=== PATIENT | female | born 1995 | race Caucasian/White ===

== ENCOUNTER 2016-04-06 14:17 | Emergency (ER) | payer MEDICAID, OTHER ==
[~2016-04-06] VITALS: Ht 160 cm; Wt 67.4 kg
[~2016-04-06 14:17] MED LIST: ACET325 PO; ALBU8I INH; PRED20 PO
[2016-04-06 14:27] VITALS: BP 118/87; PULSE 93; RESP 16; TEMP 98.5; O2SAT 98
[2016-04-06 14:49] LABS: BLOOD, URINE NEG (NEG); GLUCOSE,URINE NEG (NEG); KETONE, URINE NEG (NEG); NITRITE,URINE NEG (NEG)
[2016-04-06 14:55] LABS: METHOD OF COLLECTION CLEAN CATCH; URINE COLOR STRAW (YELLW/STRAW)
[2016-04-06] MEDS ORDERED: ZOFR8TAB4 SL (14:56)
[2016-04-06] MEDS ORDERED: TUSSSUS2 PO (14:56)
--- NOTE | 2016-04-06 14:56 | PD ---
HPI . Vomiting Chief Complaint: GI Complaint Time Seen by Provider: 14:45 Travel History International Travel<30 days: No Contact w/Intl Traveler<30days: No Traveled to known affect area: No History of Present Illness HPI The patient presents with a 2 week history of vomiting. Her vomitus has now become blood tinged. Around 4-6 episodes of emesis per day. She has some associated nausea and "weird cravings." Her last normal menstrual period was 2 months ago. PFSH Past Medical History Hx Anticoagulant Therapy: No Anemia: Yes Asthma: Yes Diminished Hearing: No Headaches: Yes Respiratory: Yes (asthma) Influenza Vaccination: No ?: Unknown LMP: 2 months ago : 1 Social History Alcohol Use: Yes (OCC) Tobacco Use: Yes (03/09 PPD) Substance Use: Yes (POT) Allergies-Medications (Allergen,Severity, Reaction): Coded Allergies: No Known Allergies (Unverified , 04/06/16) Reported Meds & Prescriptions Reported Meds & Active Scripts Active Tussionex Pennkinetic Ext 12 HR Liq (Hydrocodone-Chlorpheniramine 12 HR Liq) 10- 8 Mg/5 Ml Susp 5 Ml PO Q12H PRN Zofran Odt (Ondansetron Odt) 8 Mg Tab 8 Mg SL Q8H PRN Review of Systems Except as stated in HPI: all other systems reviewed are Neg General / Constitutional: Positive: Other (cravings), No: Fever, Chills Respiratory: Positive: Cough Gastrointestinal: Positive: Nausea, Vomiting, Hematemesis Physical Exam Narrative GENERAL: This is a healthy-appearing young woman who has a deep, dry cough. SKIN: Warm and dry. HEAD: Atraumatic. Normocephalic. EYES: Pupils equal and round. ENT: No nasal bleeding or discharge. Mucous membranes pink and moist. Oropharynx has some erythema consistent with irritation. NECK: Trachea midline. Neck is supple. No cervical lymphadenopathy. CARDIOVASCULAR: Regular rate and rhythm. Heart sounds are normal. RESPIRATORY: No accessory muscle use. Lungs are clear with full air movement throughout. GASTROINTESTINAL: Abdomen soft, non-tender, nondistended. MUSCULOSKELETAL: No obvious deformities. No edema. NEUROLOGICAL: Awake and alert. No obvious cranial nerve deficits. Motor grossly within normal limits. Normal speech. PSYCHIATRIC: Appropriate mood and affect; insight and judgment normal. Data Data Last Documented VS Vital Signs Date Time Temp Pulse Resp B/P Pulse Ox O2 Delivery O2 Flow Rate FiO2 04/06/16 14:37 16 04/06/16 14:27 98.5 93 118/87 98 Orders Urinalysis - C+S If Indicated (04/06/16 14:40) Ed Urine Pregnancytest Poc (04/06/16 14:40) Labs Laboratory Tests Test 04/06/16 14:46 Urine Collection Type CLEAN CATCH Urine Color STRAW Urine Turbidity CLOUDY Urine pH 8.0 Urine Specific [place] 1.017 Urine Protein NEG mg/dL Urine Glucose (UA) NEG mg/dL Urine Ketones NEG mg/dL Urine Occult Blood NEG Urine Nitrite NEG Urine Bilirubin NEG Urine Leukocyte Esterase SMALL Urine WBC 0-2 /hpf Urine Squamous Epithelial >8 /hpf Cells Urine Bacteria FEW /hpf Microscopic Urinalysis Comment CULT NOT INDICATED MDM Medical Decision Making Medical Screen Exam Complete: Yes Emergency Medical Condition: Yes Differential Diagnosis Differential diagnosis includes but is not limited to viral gastritis, food poisoning, pancreatitis, pneumonia, hepatitis, acute coronary syndrome, Narrative Course Patient presents with a 2 week history of vomiting. Her vomitus is now blood- tinged. test is positive. UA is positive for leukocyte esterase. It is a contaminated specimen. However , she is so I will go ahead and treat. Diagnosis Primary Impression: Vomiting affecting , antepartum Additional Impressions: Hematemesis Qualified Code: K92.0 - Hematemesis with nausea UTI (urinary tract infection) Qualified Code: N30.00 - Acute cystitis without hematuria Scripts Nitrofurantoin Monohydrate Macrocrystals (Macrobid)100 Mg [id number] Mg PO BID #10 CAP Ref 0 Prov:Lesly Hernandez MD 04/06/16 Hydrocodone-Chlorpheniramine 12 HR Liq (Tussionex Pennkinetic Ext 12 HR Liq)10- 8 Mg/5 Ml Susp5 Ml PO Q12H PRN (COUGH AND/OR COLD SYMPTOMS) #60 ML Ref 0 Prov:Lesly Hernandez MD 04/06/16 Ondansetron Odt (Zofran Odt)8 Mg Tab8 Mg SL Q8H PRN (NAUSEA OR VOMITING) #12 TAB Ref 0 Prov:Lesly Hernandez MD 04/06/16 Disposition: 01 DISCHARGE HOME Condition: Stable Lesly Hernandez MD Apr 06, 2016 14:56
[2016-04-06 14:57] LABS: BACTERIA, URINE FEW /hpf; COMMENT (UR) CULT NOT INDICATED; CULTURE IF INDICATED CULT NOT INDICATED; SQUAMOUS EPITHELIAL CELL URINE >8 /hpf (0-5); WBC, URINE 0-2 /hpf (0-5)
[2016-04-06] MEDS ORDERED: MACR100C2 PO (15:12)
[2016-08-04] MEDS ORDERED: PRENCAP35 PO (14:53)
== END 2016-04-06 15:17 | disposition home or self-care (01) ==
LOC: PHED 14:17
DX: O21.0 Mild hyperemesis gravidarum (principal); O23.40 Unspecified infection of urinary tract in pregnancy, unspecified trimester; K92.0 Hematemesis; Z3A.00 Weeks of gestation of pregnancy not specified
CPT/HCPCS: 81001; 84703; 99284

== ENCOUNTER 2016-06-12 15:34 | Emergency (ER) | payer MEDICAID ==
[~2016-06-12] VITALS: Ht 160 cm; Wt 74.0 kg
[~2016-06-12 15:34] MED LIST changes: -ACET325 PO; -ALBU8I INH; +MACR100C2 PO; -PRED20 PO; +TUSSSUS2 PO; +ZOFR8TAB4 SL
[2016-06-12 15:37] VITALS: BP 134/79; PULSE 105; RESP 16; TEMP 98.7; O2SAT 98
--- NOTE | 2016-06-12 16:44 | PD ---
HPI Chief Complaint: Related Problem Time Seen by Provider: 16:29 Travel History International Travel<30 days: No Contact w/Intl Traveler<30days: No Traveled to known affect area: No History of Present Illness HPI 20-year-old female complains of low abdominal cramping. Patient is about 4 months by dates. Patient has not had any care. Patient states that she started having some lower abdominal cramping for the past several days. Patient denies any dysuria or frequency. Patient denies any vaginal discharge or bleeding. Patient denies any fever chills. Patient denies any back pain. PFSH Past Medical History Hx Anticoagulant Therapy: No Anemia: Yes Asthma: Yes Diminished Hearing: No Headaches: Yes Respiratory: Yes (ASTHMA) ?: LMP: JANUARY 2016 : 1 Social History Alcohol Use: No Tobacco Use: Yes (1 PPWEEK) Substance Use: Yes (POT) Allergies-Medications (Allergen,Severity, Reaction): Coded Allergies: No Known Allergies (Unverified , 06/12/16) Reported Meds & Prescriptions Reported Meds & Active Scripts Active Review of Systems General / Constitutional: No: Fever Eyes: No: Visual changes HENT: No: Headaches Cardiovascular: No: Chest Pain or Discomfort Respiratory: No: Shortness of Breath Gastrointestinal: Positive: Abdominal Pain Genitourinary: No: Dysuria Musculoskeletal: No: Pain Skin: No Rash Neurologic: No: Weakness Psychiatric: No: Depression Endocrine: No: Polydipsia Hematologic/Lymphatic: No: Easy Bruising Physical Exam Narrative GENERAL: Well-nourished, well-developed patient. SKIN: Focused skin assessment warm/dry. HEAD: Normocephalic. EYES: No scleral icterus. No injection or drainage. NECK: Supple, trachea midline. No JVD or lymphadenopathy. CARDIOVASCULAR: Regular rate and rhythm without murmurs, gallops, or rubs. RESPIRATORY: Breath sounds equal bilaterally. No accessory muscle use. GASTROINTESTINAL: Abdomen soft, non-tender, nondistended. Fundal height at the umbilicus level. MUSCULOSKELETAL: No cyanosis, or edema. BACK: Nontender without obvious deformity. No CVA tenderness. MANGLE ROLL OPERATOR exam: The cervix long thick and closed. The fundal height at the level of the umbilicus. Data Data Last Documented VS Vital Signs Date Time Temp Pulse Resp B/P Pulse Ox O2 Delivery O2 Flow Rate FiO2 06/12/16 16:49 86 16 115/80 98 Room Air 06/12/16 15:37 98.7 Orders Urinalysis - C+S If Indicated (06/12/16 16:38) Labs Laboratory Tests Test 06/12/16 16:45 Urine Collection Type CLEAN CATCH Urine Color YELLOW Urine Turbidity SLIGHT Urine pH 6.0 Urine Specific [place] 1.014 Urine Protein NEG mg/dL Urine Glucose (UA) NEG mg/dL Urine Ketones NEG mg/dL Urine Occult Blood NEG Urine Nitrite NEG Urine Bilirubin NEG Urine Leukocyte Esterase NEG Urine Squamous Epithelial 0-5 /hpf Cells Urine Amorphous Sediment FEW Microscopic Urinalysis Comment CULT NOT INDICATED Urine Collection Time 1645 MDM Medical Decision Making Medical Screen Exam Complete: Yes Emergency Medical Condition: Yes Interpretation(s) 17 11 PM. UA is negative. Differential Diagnosis Differential diagnosis including with pelvic pain, UTI, threatened AB. Narrative Course 20-year-old female about 16 week , with low abdominal cramping. Procedures Procedure Narrative Emergency Department Pelvic ultrasound was performed with patient consent. The curvilinear probe was used in the transverse and sagittal views within the suprapubic region revealing single intrauterine . heart rate was 146. Active fetus. Diagnosis Primary Impression: related pelvic pain in second trimester, antepartum Patient Instructions: General Instructions Additional Instructions: Encourage by mouth fluids. Bed rest. Follow-up with OB. Return if increased pelvic pain, vaginal bleeding. Med/Other Pt SpecificInfo: No Meds Exist/No RX given Disposition: 01 DISCHARGE HOME Condition: Stable Sheng Eugene MD Jun 12, 2016 16:44
[2016-06-12 16:49] VITALS: BP 115/80; PULSE 86; RESP 16; O2SAT 98
[2016-06-12 16:56] LABS: BLOOD, URINE NEG (NEG); GLUCOSE,URINE NEG (NEG); KETONE, URINE NEG (NEG); NITRITE,URINE NEG (NEG)
[2016-06-12 17:03] LABS: METHOD OF COLLECTION CLEAN CATCH; URINE COLOR YELLOW (YELLW/STRAW)
[2016-06-12 17:05] LABS: COMMENT (UR) CULT NOT INDICATED; CULTURE IF INDICATED CULT NOT INDICATED; SQUAMOUS EPITHELIAL CELL URINE 0-5 /hpf (0-5)
[2016-08-04] MEDS ORDERED: PRENCAP35 PO (14:53)
== END 2016-06-12 17:23 | disposition home or self-care (01) ==
LOC: PHED 15:34
DX: O26.892 Other specified pregnancy related conditions, second trimester (principal); R10.2 Pelvic and perineal pain; Z3A.16 16 weeks gestation of pregnancy
CPT/HCPCS: 81001; 99284

== ENCOUNTER 2016-07-04 14:09 | Emergency (ER) | payer MEDICAID ==
[~2016-07-04] VITALS: Ht 160 cm; Wt 70.6 kg
[2016-07-04 14:22] VITALS: BP 124/71; PULSE 85; RESP 16; TEMP 98.3; O2SAT 98
--- NOTE | 2016-07-04 14:53 | PD ---
HPI Chief Complaint: Related Problem Time Seen by Provider: 14:27 Travel History International Travel<30 days: No Contact w/Intl Traveler<30days: No Traveled to known affect area: No History of Present Illness HPI The patient was seen and examined in the presence of the nurse. This patient is and complaining of pelvic cramping and some low back discomfort for the last 2 days. Denies injury. No vaginal bleeding or fluid gush. Denies fever. No vomiting or diarrhea. Symptoms severity is mild. No alleviating factors. She has not obtained any care. PFSH Past Medical History Hx Anticoagulant Therapy: No Anemia: Yes Asthma: Yes Diminished Hearing: No Headaches: Yes Respiratory: Yes (ASTHMA) Tetanus Vaccination: < 5 Years Influenza Vaccination: No ?: LMP: 01/19 : 1 Social History Alcohol Use: No Tobacco Use: Yes (1 PPWEEK) Substance Use: Yes (POT) Allergies-Medications (Allergen,Severity, Reaction): Coded Allergies: No Known Allergies (Unverified , 07/04/16) Reported Meds & Prescriptions Reported Meds & Active Scripts Active No Active Prescriptions or Reported Medications Review of Systems General / Constitutional: No: Fever HENT: No: Headaches Cardiovascular: No: Chest Pain or Discomfort Respiratory: No: Cough Physical Exam Narrative GASTROINTESTINAL: Abdomen soft, non-tender, nondistended. Positive bowel sounds. No hepato-splenomegaly, or palpable masses. No guarding. Gravid uterus is nontender. It measures to 2 cm past the umbilicus suggesting approximate 22 weeks gestation age The heart tones 136 and regular SKIN: Focused skin assessment reveals no rash or ulcers. Skin is warm and dry. Palpation shows no induration or nodules. NECK: Symmetrical appearance, midline trachea. No mass or crepitus. Thyroid without enlargement, tenderness, or mass. Pelvic: Cervix closed without motion tenderness. No blood in the vault Data Data Last Documented VS Vital Signs Date Time Temp Pulse Resp B/P Pulse Ox O2 Delivery O2 Flow Rate FiO2 07/04/16 14:22 98.3 85 16 124/71 98 Orders Heart Tones (07/04/16 14:45) MDM Medical Decision Making Medical Screen Exam Complete: Yes Emergency Medical Condition: Yes Medical Record Reviewed: Yes Differential Diagnosis labor, nonspecific pelvic cramping, ectopic Narrative Course I have reviewed the patient's electronic medical record. Reviewed her visit here from a month ago Patient is with unknown exact gestational age but an approximate uterine measurement at 22 weeks. Has closed cervix but 2 days of pelvic cramping and low back pain Recommending labor and delivery evaluation to rule out labor which is probably low likelihood which should be ruled out Stable for nonemergent visit to labor and delivery Discussed this at length with patient I don't feel she needs ambulance transport, cyanide case hardener is looking into getting a cab etc. Diagnosis Primary Impression: related pelvic pain in second trimester, antepartum Additional Instructions: Go to labor and delivery at the main hospital for evaluation and rule out of labor After that obtain care as soon as she can Med/Other Pt SpecificInfo: Other Scripts No Active Prescriptions or Reported Meds Disposition: 01 DISCHARGE HOME Condition: Stable Anderson Singh MD July 04, 2016 14:53
[2016-08-04] MEDS ORDERED: PRENCAP35 PO (14:53)
== END 2016-07-04 15:08 | disposition home or self-care (01) ==
LOC: PHED 14:09
DX: O26.892 Other specified pregnancy related conditions, second trimester (principal); R10.2 Pelvic and perineal pain; Z3A.22 22 weeks gestation of pregnancy
CPT/HCPCS: 99283

== ENCOUNTER 2016-07-04 16:04 | Emergency (ER) | payer MEDICAID ==
--- NOTE | 2016-07-04 17:30 | PD ---
HPI Chief Complaint pelvic pain Date Seen: July 04, 2016 Time Seen: 16:49 (Itz Cifuentes MD R1) Travel History International Travel<30 Days: No Contact w/Intl Traveler<30Days: No (Itz Cifuentes MD R1) History of Present Illness HPI 20 y/o with unsure dated, thinks 20-21 weeks, female presents with pelvic pain. She was seen in [place] ED this morning for brown vaginal discharge and cold-like symptoms. Also having bilateral pelvic pain. States the pain has been going on for a couple days, but has worsened recently. Also endorses fever, states she checked it and it was 101 at home. Denies any vaginal bleeding, loss of fluids, contractions. States movement has decreased, especially during the day. She has no care. States LMP was around 01/24/16. She has irregular periods, so was unsure. Otherwise, denies any headache, changes in vision, edema. No chest pain, SOB, leg pain, dysuria. Para: 1 : 6 Miscarriage: 3 : 1 (Itz Cifuentes MD R1) History Past Medical History Narrative Medical Iron-deficiency anemia PTSD Anxiety/Depression (Itz Cifuentes MD R1) Obstetric History Obstetric History -3 miscarriages, 1 -Previous delivery was at term (Itz Cifuentes MD R1) Past Surgical History Surgical History: No Previous Surgery (Itz Cifuentes MD R1) Family History Family History: Negative (Itz Cifuentes MD) Social History Narrative Social History Alcohol early on in before she knew she was Smokes a couple cigarettes/week Smokes marijuana almost daily (Itz Cifuentes MD R1) Allergies-Medications (Allergen,Severity, Reaction): Coded Allergies: No Known Allergies (Unverified , 07/04/16) Home Meds No Active Prescriptions or Reported Meds Review of Systems General / Constitutional: Fever, Weight Gain, No: Chills Eyes: No: Blurred Vision, Pain HENT: No: Headaches Cardiovascular: No: Irregular Rhythm, Chest Pain or Discomfort, Edema Respiratory: Cough, No: Short of Breath Gastrointestinal: No: Nausea, Vomiting, Diarrhea, Abdominal Pain, Constipation Genitourinary: Pelvic Pain, Discharge, No: Urgency, Frequency, Vaginal Bleeding Musculoskeletal: No: Edema Skin: No Rash, No Itching Neurologic: No: Weakness, Dizziness Psychiatric: No: Anxiety, Depression (Itz Cifuentes MD R1) Physical Exam Narrative GENERAL: Well-nourished, well-developed patient. SKIN: Warm and dry. HEAD: Normocephalic and atraumatic. EYES: No scleral icterus. No injection or drainage. ENT: No nasal drainage noted. Mucous membranes pink. Airway patent. NECK: Supple, trachea midline. No JVD. CARDIOVASCULAR: Regular rate and rhythm without murmurs, gallops, or rubs. RESPIRATORY: Breath sounds equal bilaterally. Occasional wheezes. No accessory muscle use. ABDOMEN/GI: Abdomen soft, non-tender, bowel sounds present, no rebound, no guarding Gravid to 25 weeks size GENITOURINARY: External Genitalia: intact and normal in appearance Cervix: closed, minimally friable Speculum exam performed. Milky discharge present. Fishy odor. Cultures obtained. Dilatation: 0 Membranes: intact Uterine Contractions: none FHT's: Category: 1 Baseline: 140 Reactive: yes Variability: moderate Decels: none EXTREMITIES: No cyanosis or edema. BACK: Nontender without obvious deformity. No CVA tenderness. NEUROLOGICAL: Awake and alert. Motor and sensory grossly within normal limits. Five out of 5 muscle strength in all muscle groups. Normal speech. (Itz Cifuentes MD R1) Data Data Vital Signs Reviewed: Yes Orders Us Ob Pelvis >14 Wks Fetus (07/04/16 ) Vital Signs (Adult) .ON ADMISSION (07/04/16 16:44) ^ Labor Status (07/04/16 16:44) Urinalysis - C+S If Indicated (07/04/16 16:44) ^ Hydration (07/04/16 16:44) Wet Prep Profile (07/04/16 16:44) Gc And Chlamydia Pcr (07/04/16 16:44) Ob/Psych Drug Screen, Urine (07/04/16 16:44) Rubella Immune Status (07/04/16 16:44) Hepatitis Profile (07/04/16 16:44) Rapid Plasma Regin (Rpr) W Ttr (07/04/16 16:44) Type And Screen (07/04/16 16:44) Complete Blood Count With Diff (07/04/16 16:44) (Itz Cifuentes MD R1) Vital Signs Reviewed: Yes Labs Laboratory Tests Test 07/04/16 17:38 White Blood Count 7.9 TH/MM3 Red Blood Count 4.47 MIL/MM3 Hemoglobin 11.6 GM/DL Hematocrit 35.4 % Mean Corpuscular Volume 79.1 FL Mean Corpuscular Hemoglobin 25.9 PG Mean Corpuscular Hemoglobin 32.8 % Concent Red Cell Distribution Width 14.3 % Platelet Count 216 TH/MM3 Mean Platelet Volume 9.2 FL Neutrophils (%) (Auto) 65.9 % Lymphocytes (%) (Auto) 24.7 % Monocytes (%) (Auto) 6.2 % Eosinophils (%) (Auto) 3.1 % Basophils (%) (Auto) 0.1 % Neutrophils # (Auto) 5.2 TH/MM3 Lymphocytes # (Auto) 1.9 TH/MM3 Monocytes # (Auto) 0.5 TH/MM3 Eosinophils # (Auto) 0.2 TH/MM3 Basophils # (Auto) 0.0 TH/MM3 CBC Comment DIFF FINAL Differential Comment Urine Color YELLOW Urine Turbidity HAZY Urine pH 6.5 Urine Specific [place] 1.028 Urine Protein 30 mg/dL Urine Glucose (UA) NEG mg/dL Urine Ketones 40 mg/dL Urine Occult Blood NEG Urine Nitrite NEG Urine Bilirubin NEG Urine Urobilinogen 8.0 MG/DL Urine Leukocyte Esterase TRACE Urine RBC LESS THAN 1 /hpf Urine WBC 2 /hpf Urine Squamous Epithelial 2 /hpf Cells Urine Mucus MANY /lpf Microscopic Urinalysis Comment CULT NOT INDICATED Clue Cells (Wet Prep) NONE SEEN Vaginal Trichomonas (Wet Prep) NONE SEEN Vaginal Yeast (Wet Prep) NONE SEEN Urine Opiates Screen NEG Urine Barbiturates Screen NEG Urine Amphetamines Screen NEG Urine Benzodiazepines Screen NEG Urine Cocaine Screen NEG Urine Cannabinoids Screen POS Blood Type A POSITIVE (Sanya Taylor MD) MDM Medical Record Reviewed: Yes Interpretation(s) 20 y/o with unsure dates presents with pelvic pain and brown discharge. Category 1 FHT Speculum exam: Milky discharge, minimally friable cervix. Cultures obtained Poor care, does not follow-up with OB -Continuous FHT -Monitor vitals -Order labs: CBC, Type and screen, Hepatitis panel, RPR, Rubella -UDS, UA -GC/CH, wet prep -Ultrasound to evaluate for growth/accurate dates (Itz Cifuentes MD R1) Attending Attestation The exam, history, and the medical decision-making described in the above note were completed with the assistance of the resident provider. I reviewed and agree with the findings presented. I attest that I had a [id number] encounter with the patient on the same day, and personally performed and documented my assessment and findings in the medical record. 1. no care--anatomy ultrasound obtained and reviewed. PNL drawn and sent to lab. Dr. Ramirez, PGY 2, will accept patient into her OB clinic. Pt given information regarding scheduling appt. 2. brown discharge--wet prep neg, GC/CT pending 3. lower ab pain--pt with uterine irritability on toco initially, decreased with hydration. UA--culture not indicated. cervix closed. no evidence of PTL. suspect RLP. 4. UDS--+MJ 5. URI symptoms--recommend hydration, rest, supportive care, OTC meds (Sanya Taylor MD) Diagnosis Diagnosis: Primary Impression: Vaginal discharge during in third trimester Additional Impression: 27 weeks gestation of Disposition: DISCHARGE HOME Condition: Stable (ERASED) Scripts No Active Prescriptions or Reported Meds Itz Cifuentes MD R1 July 04, 2016 17:30 Sanya Taylor MD July 04, 2016 19:34
[2016-07-04 18:26] LABS: AUTOMATED NEUTROPHIL # 5.2 TH/MM3 (1.8-7.7); BASOPHIL % 0.1 % (0.0-2.0); EOSINOPHIL # 0.2 TH/MM3 (0-0.4); EOSINOPHIL % 3.1 % (0.0-4.0); HEMATOCRIT 35.4 % (35.0-46.0); HEMO FLAGS DIFF FINAL; LYMPH % 24.7 % (9.0-44.0); LYMPHOCYTE # 1.9 TH/MM3 (1.0-4.8); MEAN CELL VOLUME 79.1 FL (80.0-100.0); MEAN CORPUSCULAR HEMOGLOBIN 25.9 PG (27.0-34.0); MEAN CORPUSCULAR HGB CONC 32.8 % (32.0-36.0); MONO % 6.2 % (0.0-8.0); NEUT % 65.9 % (16.0-70.0); PLATELET COUNT 216 TH/MM3 (150-450); RED BLOOD COUNT 4.47 MIL/MM3 (4.00-5.30); RED CELL DISTRIBUTION WIDTH 14.3 % (11.6-17.2); WHITE BLOOD COUNT 7.9 TH/MM3 (4.0-11.0)
[2016-07-04 18:30] LABS: BLOOD, URINE NEG (NEG); GLUCOSE,URINE NEG (NEG); KETONE, URINE 40 mg/dL (NEG); MUCUS URINE MANY /lpf (OCC); NITRITE,URINE NEG (NEG); PH, URINE 6.5 (5.0-8.5); SQUAMOUS EPITHELIAL CELL URINE 2 /hpf (0-5); URINE COLOR YELLOW (YELLW/STRAW)
[2016-07-04 18:31] LABS: COMMENT (UR) CULT NOT INDICATED; CULTURE IF INDICATED CULT NOT INDICATED
[2016-07-04 18:34] VITALS: BP 100/64; PULSE 86; RESP 20
[2016-07-04 18:35] LABS: AMPHETAMINE, URINE NEG (NEG); BARBITURATES, URINE NEG (NEG); COCAINE, URINE NEG (NEG)
[2016-07-04 21:10] LABS: RUBELLA IGG ANTIBODY 222.2 IU/mL (10.0-500.0); RUBELLA STATUS IMMUNE (IMMUNE)
[2016-07-04 21:11] LABS: CHLAMYDIA PCR NOT DETECTED (NOT DETECT); NEISSERIA PCR NOT DETECTED (NOT DETECT)
[2016-07-05 11:06] LABS: RAPID PLASMA REAGIN SCREEN NON-REACTIVE (NON-REACTVE)
[2016-07-08 10:39] LABS: BATH SALTS (MDPV) UR NEG (NEG); ECSTASY (MDMA) UR NEG (NEG); GABAPENTIN UR NEG (NEG); HEROIN (6-ACETYLMORPHINE) UR NEG (NEG); HYDROMORPHONE U NEG (NEG); K2 SPICE UR NEG (NEG); OBMETHADONE UR NEG (NEG); OXYCODONE (PERCODAN) NEG (NEG); PHENCYCLIDINE URINE NEG (NEG)
[2016-08-04] MEDS ORDERED: PRENCAP35 PO (14:53)
== END 2016-07-04 22:08 | disposition home or self-care (01) ==
LOC: HOBED 16:04
DX: O26.92 Pregnancy related conditions, unspecified, second trimester (principal); O09.32 Supervision of pregnancy with insufficient antenatal care, second trimester; N89.8 Other specified noninflammatory disorders of vagina; R10.2 Pelvic and perineal pain; Z3A.27 27 weeks gestation of pregnancy
CPT/HCPCS: 76805; 80074; 80307; 81001; 85025; 86592; 86762; 86850; 86900; 86901; 87210; 87491; 87591; 99284; G0481

== ENCOUNTER 2016-07-25 10:59 | Emergency (ER) | payer MEDICAID ==
[2016-07-25] VITALS (8 sets, daily range): BP systolic 110; BP diastolic 70; PULSE 88–96; RESP 18; TEMP 98
--- NOTE | 2016-07-25 12:06 | PD ---
HPI Chief Complaint Near syncopal episode Date Seen: July 25, 2016 Time Seen: 11:30 (Feliz Simon MD R2) Travel History International Travel<30 Days: No Contact w/Intl Traveler<30Days: No Known Affected Area: No (Feliz Simon MD) History of Present Illness HPI Patient is a 20-year-old at 30/1 weeks gestation based on first trimester ultrasound presenting via [facility] due to a presyncopal episode. Patient reports that earlier today she presented work and while went walking around she felt lightheaded, dizzy. She sat down and felt as if her vision was "closing in ", her coworkers noted that she looks pale. [facility] was called and notes that she was pale and diaphoretic when they responded, her vitals were stable. Patient reports that she has had a decreased appetite for the last 2 days but she has been snacking intermittently. She denies ever losing consciousness during this , denies a history of heart problems. She endorses movement, but this is less than normal, denies vaginal bleeding, loss of fluid, regular contractions. She smokes about 12 cigarettes per day and has been trying to cut back on marijuana use but last smoked marijuana about 2 days ago to help with her appetite. Para: 1 : 7 Miscarriage: 4 : 1 (Feliz Simon MD R2) History Past Medical History Narrative Medical Anemia Asthma Anxiety/depression (Feliz Simon MD R2) Obstetric History Obstetric History Patient has experienced for spontaneous abortions, within the first trimester. She has never been worked up for a bleeding disorder. She has 1 living child who is not in her custody and is being adopted by her mother due to concern for abuse. Patient is interested in local resources as she would like to learn more about adoption. (Feliz Simon MD R2) Past Surgical History Surgical History: No Previous Surgery (Feliz Simon MD) Family History Narrative Family History Patient with history of diabetes and hypertension in maternal grandmother ( Feliz Simon MD R2) Social History Alcohol Use: Yes (Before she knew she was , last drink in March) Tobacco Use: Yes (3-4 cigarettes daily) Substance Abuse: Yes (marijuana) (Feliz Simon MD R2) Allergies-Medications (Allergen,Severity, Reaction): Coded Allergies: No Known Allergies (Unverified , 07/04/16) Home Meds Active Scripts Nitrofurantoin Monohydrate Macrocrystals (Macrobid)100 Mg [id number] Mg PO BID #14 CAP Ref 0 Prov:Feliz Simon MD R2 07/25/16 Review of Systems General / Constitutional: No: Fever, Chills Eyes: No: Visual changes HENT: Headaches (occasional) Cardiovascular: No: Chest Pain or Discomfort Respiratory: No: Short of Breath Gastrointestinal: Nausea, Diarrhea, Abdominal Pain (occasional), No: Vomiting Genitourinary: No: Dysuria Skin: No Rash Neurologic: Dizziness, No: Syncope Psychiatric: Anxiety, Depression (well-controlled) (Feliz Simon MD R2) Physical Exam Narrative GENERAL: Well-nourished, well-developed patient. SKIN: Warm and dry. HEAD: Normocephalic and atraumatic. EYES: No scleral icterus. No injection or drainage. ENT: No nasal drainage noted. Mucous membranes pink. Airway patent. NECK: Supple, trachea midline. No JVD. CARDIOVASCULAR: Regular rate and rhythm without murmurs, gallops, or rubs. RESPIRATORY: Breath sounds equal bilaterally. No accessory muscle use. ABDOMEN/GI: Abdomen soft, non-tender, bowel sounds present, no rebound, no guarding Gravid to 30 weeks size GENITOURINARY: Membranes: Intact Uterine Contractions: absent FHT's: Category: 1 Baseline: 140 Reactive: + Variability: Moderate Decels: Absent EXTREMITIES: No cyanosis or edema. BACK: Nontender without obvious deformity. No CVA tenderness. NEUROLOGICAL: Awake and alert. Motor and sensory grossly within normal limits. Five out of 5 muscle strength in all muscle groups. Normal speech. (Feliz Simon MD R2) MDM Interpretation(s) Patient is a 20-year-old at 30/1 weeks gestation based on first trimester ultrasound presenting via [facility] due to a presyncopal episode. 1) IUP Category 1 tracing, reassuring External monitoring/toco 2) Pre-syncopal episode Patient with history of anemia We'll check CBC, CMP, UA, UDS Urine appears very concentrated, patient was given 250ml Bolus by [facility] Will give 1L Bolus of LR Blood pressure within normal limits, initially 118/76 3) No care, desire for adoption Pt to talk with embedded case manager about available resources She currently has insurance and will call [facility] to schedule an appointment dw Dr. Sánchez (Feliz Simon MD R2) Diagnosis Diagnosis: Primary Impression: Pre-syncope Additional Impression: Normal Disposition: 01 DISCHARGE HOME Condition: Stable Scripts Nitrofurantoin Monohydrate Macrocrystals (Macrobid)100 Mg [id number] Mg PO BID #14 CAP Ref 0 Prov:Feliz Simon MD R2 07/25/16 Referrals: [facility] 1 week Pt provided with information to schedule an appointment Collaborating MD Comments Agree with management (Elizabeth Sánchez MD) Feliz Simon MD R2 July 25, 2016 12:06 Elizabeth Sánchez MD July 26, 2016 08:21
[2016-07-25 12:34] LABS: HEMATOCRIT 31.4 % (35.0-46.0); MEAN CELL VOLUME 77.2 FL (80.0-100.0); MEAN CORPUSCULAR HEMOGLOBIN 25.5 PG (27.0-34.0); MEAN CORPUSCULAR HGB CONC 33.1 % (32.0-36.0); PLATELET COUNT 228 TH/MM3 (150-450); RED BLOOD COUNT 4.07 MIL/MM3 (4.00-5.30); RED CELL DISTRIBUTION WIDTH 13.8 % (11.6-17.2); REVIEW FLAG FINAL; WHITE BLOOD COUNT 9.1 TH/MM3 (4.0-11.0)
[2016-07-25 12:39] LABS: AMPHETAMINE, URINE NEG (NEG); BARBITURATES, URINE NEG (NEG); COCAINE, URINE NEG (NEG)
[2016-07-25 12:43] LABS: BACTERIA, URINE FEW /hpf; BLOOD, URINE NEG (NEG); COMMENT (UR) CULTURE INDICATED; CULTURE IF INDICATED CULTURE INDICATED; GLUCOSE,URINE TRACE mg/dL (NEG); KETONE, URINE 10 mg/dL (NEG); MUCUS URINE MANY /lpf (OCC); NITRITE,URINE NEG (NEG); SQUAMOUS EPITHELIAL CELL URINE 45 /hpf (0-5); URINE COLOR AMBER (YELLW/STRAW)
[2016-07-25] MEDS ORDERED: LACTATED RINGER'S 1000 ML INJ 1,000 ML IV ONE (12:45)
[2016-07-25 12:58] LABS: ANION GAP 9 MEQ/L (5-15); AST (GOT) 13 U/L (16-38); BICARBONATE 23.7 MEQ/L (21.0-32.0); BLOOD UREA NITROGEN 6 MG/DL (7-18); CHLORIDE 103 MEQ/L (98-107); GLOMERULAR FILTRATION RATE 144 ML/MIN (>89); POTASSIUM 3.7 MEQ/L (3.5-5.1); SODIUM (NA) 136 MEQ/L (136-145)
[2016-07-25 13:02] LABS: ALKALINE PHOSPHATASE 112 U/L (45-117); ALT (GPT) 13 U/L (9-42); TOTAL BILIRUBIN ADULT 0.3 MG/DL (0.2-1.0)
[2016-07-25] MEDS ORDERED: MACR100C2 PO (13:37)
[2016-07-28 11:21] LABS: BATH SALTS (MDPV) UR NEG (NEG); ECSTASY (MDMA) UR NEG (NEG); GABAPENTIN UR NEG (NEG); HEROIN (6-ACETYLMORPHINE) UR NEG (NEG); HYDROMORPHONE U NEG (NEG); K2 SPICE UR NEG (NEG); OBMETHADONE UR NEG (NEG); OXYCODONE (PERCODAN) NEG (NEG); PHENCYCLIDINE URINE NEG (NEG)
[2016-08-04] MEDS ORDERED: PRENCAP35 PO (14:53)
== END 2016-07-25 14:30 | disposition home or self-care (01) ==
LOC: HOBED 10:59
DX: O26.893 Other specified pregnancy related conditions, third trimester (principal); R55 Syncope and collapse; R42 Dizziness and giddiness; R82.99 Other abnormal findings in urine; Z72.0 Tobacco use; Z86.2 Personal history of diseases of the blood and blood-forming organs and certain disorders involving the immune mechanism; Z87.09 Personal history of other diseases of the respiratory system; Z86.59 Personal history of other mental and behavioral disorders; Z3A.30 30 weeks gestation of pregnancy
CPT/HCPCS: 80053; 80307; 81001; 85027; 87086; 99284; G0481; J7120

== ENCOUNTER 2016-08-15 12:44 | Emergency (ER) | payer MEDICAID ==
[~2016-08-15 12:44] MED LIST changes: -MACR100C2 PO; +PRENCAP35 PO; -TUSSSUS2 PO; -ZOFR8TAB4 SL
--- NOTE | 2016-08-15 13:28 | PD ---
HPI Chief Complaint Cramping Date Seen: Aug 15, 2016 Travel History International Travel<30 Days: No Contact w/Intl Traveler<30Days: No History of Present Illness HPI Patient is a 21-year-old at 33-1/7 weeks gestation who presents today with pelvic cramping. Symptoms started yesterday and has progressively worsened. The cramping is occurring about every 15 minutes. She is also having nausea and emesis. She feels that she has had leaking fluid since Monday morning. She denies any vaginal bleeding or discharge. She has had frequent stools about 4 times per day for the past 2 days that are softer than usual. care with [facility]. History Past Medical History Narrative Medical Anemia Asthma Anxiety/depression Obstetric History Obstetric History 4 first trimester spontaneous abortions. She has never been worked up for a bleeding disorder. She has 1 living child who is not in her custody and is being adopted by her mother due to concern for abuse. Past Surgical History Surgical History: No Previous Surgery Family History Narrative Family History Maternal grandmother with diabetes and hypertension. Social History Alcohol Use: No Tobacco Use: Yes (3-4 cigarettes per day) Substance Abuse: Yes (marijuana) Allergies-Medications (Allergen,Severity, Reaction): Coded Allergies: No Known Allergies (Unverified , 07/26/16) Home Meds Active Scripts Without A Vit W/ Fe F (Provida Ob 20-20-1.25 mg)1 Cap Cap1 Tab PO DAILY #30 BOTTLE Ref 10 Prov:Vita Blanco 08/04/16 Review of Systems Except as stated in HPI: all other systems reviewed are Neg General / Constitutional: No: Fever, Chills Eyes: No: Visual changes HENT: No: Headaches Cardiovascular: No: Chest Pain or Discomfort Respiratory: Short of Breath, No: Cough Gastrointestinal: Nausea, Vomiting, Abdominal Pain, Changes in Bowel Habits Genitourinary: Pelvic Pain, No: Dysuria, Discharge, Vaginal Bleeding Musculoskeletal: No: Edema Psychiatric: Substance Abuse (marijuana) Physical Exam Narrative GENERAL: Well-nourished, well-developed patient. SKIN: Warm and dry. HEAD: Normocephalic and atraumatic. EYES: No scleral icterus. No injection or drainage. ENT: No nasal drainage noted. Mucous membranes pink. Airway patent. NECK: Supple, trachea midline. No JVD. CARDIOVASCULAR: Regular rate and rhythm without murmurs, gallops, or rubs. RESPIRATORY: Breath sounds equal bilaterally. No accessory muscle use. ABDOMEN/GI: Abdomen soft, non-tender, bowel sounds present, no rebound, no guarding Gravid to 33 weeks size GENITOURINARY: External Genitalia: intact and normal in appearance BUS glands: Normal Cervix: midposition Dilatation: 1 Effacement: 30 Station: -2 Presentation: vertex Membranes: intact Uterine Contractions: none FHT's: Category: I Baseline: 123 Reactive: + Variability: Moderate Decels: none EXTREMITIES: No cyanosis or edema. BACK: Nontender without obvious deformity. Left CVA tenderness. NEUROLOGICAL: Awake and alert. Motor and sensory grossly within normal limits. Normal speech. Data Data Vital Signs Reviewed: Yes MDM Medical Record Reviewed: Yes Narrative Course / MDM 21 year old at 33-1/7 weeks gestation 1. IUP- Category I tracing, reassuring. 2. Cramping- No contractions on toco. Will obtain UA. CVA tenderness. 3. Nausea/vomiting- Tachycardia to 121, will give IV LR for dehydration. 4. Leaking fluid- Amnisure negative. sdw Dr. Macias Addendum: UA not indicative of UTI. Will give zofran for her nausea and gentamicin 100mg once to cover possible UTI based on clinical symptoms. Patient starting to show consistent contractions on toco. Maternal pulse is now 90 after fluids. Will give Terbutaline 0.25mg SQ. Contractions have stopped after Terbutaline. Will discharge patient home, follow-up with [facility]. Diagnosis Diagnosis: Primary Impression: Nausea & vomiting Qualified Code: R11.2 - Non-intractable vomiting with nausea, unspecified vomiting type Additional Impression: contractions Disposition: DISCHARGE HOME Condition: Stable Jennie Ramirez MD R2 Aug 15, 2016 13:28
[2016-08-15] MEDS ORDERED: SODIUM CHLORIDE 0.9% FLUSH 10 ML FLUSH IV FLUSH PRN (13:30)
[2016-08-15 13:56] LABS: BLOOD, URINE NEG (NEG); GLUCOSE,URINE NEG (NEG); HYALINE CAST, URINE 2 /lpf (RARE); KETONE, URINE TRACE mg/dL (NEG); MUCUS URINE MANY /lpf (OCC); NITRITE,URINE NEG (NEG); SQUAMOUS EPITHELIAL CELL URINE 14 /hpf (0-5); URINE COLOR DARK-YELLOW (YELLW/STRAW)
[2016-08-15 14:02] LABS: COMMENT (UR) CULT NOT INDICATED; CULTURE IF INDICATED CULT NOT INDICATED
[2016-08-15] MEDS: LACTATED RINGER'S 1000 ML INJ 1,000 ML IV SCH ×2 (14:06→14:44)
[2016-08-15] MEDS ORDERED: ONDANSETRON HCL 4 MG/2 ML VIAL IV PUSH ONE (14:15)
[2016-08-15] MEDS ORDERED: GENTAMICIN INJ 100 MG in SODIUM CHLORIDE 0.9% INJ 100 ML IV ONE (14:15)
[2016-08-15 14:36] VITALS: BP 103/61; PULSE 81
[2016-08-15] MEDS ORDERED: TERBUTALINE INJ 1 MG/ML AMP SQ PRN (15:00)
== END 2016-08-15 15:18 | disposition home or self-care (01) ==
LOC: HOBED 12:44
DX: O21.2 Late vomiting of pregnancy (principal); Z3A.33 33 weeks gestation of pregnancy
CPT/HCPCS: 59025; 81001; 84112; 96374; 96375; 99284; J1580; J2405; J3010; J7120

== ENCOUNTER 2016-09-11 23:13 | Emergency (ER) | payer MEDICAID ==
--- NOTE | 2016-09-11 23:54 | PD ---
HPI Travel History International Travel<30 Days: No Contact w/Intl Traveler<30Days: No Known Affected Area: No History of Present Illness HPI This patient is a 21-year-old 7 para 1051 EDC is October 02, 2016 presently at 37 weeks she presents with chief complaint of possible spontaneous rupture of membranes. Having occasional irregular contractions no vaginal bleeding the baby is active [facility] with [facility] was seen on the triage unit approximately a month ago with contractions was given terbutaline and discharged home. Amnisure is negative History Past Medical History Narrative Medical Patient is allergic to an antidepressive does not know the name of it it gives her a rash History of asthma migraines anemia PTSD Obstetric History Obstetric History First baby born May 2014 male weight 6 lbs. 15 oz. vaginal delivery VIP 1 Spontaneous AB 4 Past Surgical History Narrative Surgical D&C Family History Narrative Family History Heart disease Social History Alcohol Use: No Tobacco Use: Yes (stop smoking with ) Substance Abuse: Yes (history of marijuana use stop with ) Allergies-Medications (Allergen,Severity, Reaction): Coded Allergies: No Known Allergies (Unverified , 09/08/16) Home Meds Active Scripts Without A Vit W/ Fe F (Provida Ob 20-20-1.25 mg)1 Cap Cap1 Tab PO DAILY #30 BOTTLE Ref 10 Prov:Vita Blanco 08/04/16 Review of Systems Gastrointestinal: Abdominal Pain (irregular contractions) Genitourinary: Other (possible rupture of membranes) Physical Exam Narrative GENERAL: Well-nourished, well-developed patient. Alert oriented 3 and cooperative in no acute distress SKIN: Warm and dry. HEAD: Normocephalic and atraumatic. EYES: No scleral icterus. No injection or drainage. ENT: No nasal drainage noted. Mucous membranes pink. Airway patent. NECK: Supple, trachea midline. No JVD. CARDIOVASCULAR: Regular rate and rhythm without murmurs, gallops, or rubs. RESPIRATORY: Breath sounds equal bilaterally. No accessory muscle use. ABDOMEN/GI: Gravid consistent with 37 weeks gestation soft nontender mild palpable contractions no epigastric or right upper quadrant tenderness no rebound tenderness Gravid to [-] weeks size 37 Fundal Height: [-] GENITOURINARY: External Genitalia: intact and normal in appearance BUS glands: [-] Cervix: [-] Posterior soft Dilatation: [-] Fingertip to 1 Effacement: [-] 50% effaced Station: [-] -2 station Presentation: [-] Vertex Membranes: [intact -amnisure is negative Uterine Contractions: [-] Irregular FHT's: Category: [-] 1 Baseline: [-] 130 Reactive: [-] + Variability: [-] Moderate [id number] variability Decels: [-] 0 EXTREMITIES: No cyanosis or edema. 2+ reflexes NEUROLOGICAL: Awake and alert. Motor and sensory grossly within normal limits. Five out of 5 muscle strength in all muscle groups. Normal speech. Data Data Vital Signs Reviewed: Yes (blood pressures 121/80 pulse is 105 she is afebrile) Labs Category 1 tracing [facility] Medical Record Reviewed: No Interpretation(s) 21-year-old 7 para 1 at 37 weeks No clinical evidence of ruptured membranes Not in labor [facility] [place] Plan Patient has been monitored over the past 35 minutes By mouth fluid hydration Discharge home as membranes not ruptured and not in labor Keep appointment on Monday with [facility] Diagnosis Diagnosis: Primary Impression: 37 weeks gestation of Additional Impression: Encounter for suspected premature rupture of membranes, with rupture of membranes not found Disposition: DISCHARGE HOME Condition: Stable Lissa Duran MD Sep 11, 2016 23:54
== END 2016-09-12 | disposition home or self-care (01) ==
LOC: HOBED 23:13
DX: O47.1 False labor at or after 37 completed weeks of gestation (principal); O99.013 Anemia complicating pregnancy, third trimester; J45.909 Unspecified asthma, uncomplicated; F43.10 Post-traumatic stress disorder, unspecified; Z3A.37 37 weeks gestation of pregnancy
CPT/HCPCS: 59025; 84112

== ENCOUNTER 2016-09-17 22:10 | Emergency (ER) | payer MEDICAID ==
--- NOTE | 2016-09-17 23:02 | PD ---
HPI Chief Complaint Abdominal pain malodorous discharge Date Seen: Sep 17, 2016 Travel History International Travel<30 Days: No Contact w/Intl Traveler<30Days: No Known Affected Area: No History of Present Illness HPI Patient is 21-year-old white female at 38 weeks who [facility] the [facility] who presents complaining of some abdominal pain up she was walking this evening she noticed the discharge had a bad smell to it she denies itching or other long-term discharge issues, heart rate tracing is reactive and no contractions, no bleeding or leakage of fluid Para: 1 : 7 History Obstetric History Obstetric History Multiple early loss 1 vaginal delivery Social History Alcohol Use: No Tobacco Use: No Substance Abuse: No Allergies-Medications (Allergen,Severity, Reaction): Coded Allergies: No Known Allergies (Unverified , 09/13/16) Home Meds Active Scripts Without A Vit W/ Fe F (Provida Ob 20-20-1.25 mg)1 Cap Cap1 Tab PO DAILY #30 BOTTLE Ref 10 Prov:Vita Blanco 08/04/16 Review of Systems General / Constitutional: No: Fever, Weight Gain, Chills, Other Eyes: No: Diploplia, Blurred Vision, Visual changes, Pain, Photophobia HENT: No: Headaches, Vertigo, Lightheadedness Cardiovascular: No: Irregular Rhythm, Chest Pain or Discomfort, Palpitations, Tachycardia, Syncope, Varicosities, Edema, Cyanosis Respiratory: No: Cough, Short of Breath, Other Gastrointestinal: Abdominal Pain Genitourinary: No: Decreased Urinary Output, Oliguria Musculoskeletal: No: Limited ROM, Weakness, Cramping, Edema, Pain Skin: No Rash, No Itching, No Dryness, No Lumps, No Change in Pigmentation, No Change in Nails, No Alopecia, No Lesions Neurologic: No: Weakness, Dizziness, Syncope, Focal Abnormalities, Coordination Problem, Headache, Slurred Speech, Seizures Psychiatric: No: Depression, Suicidal Ideations, Homicidal Ideation Endocrine: No: Heat Intolerance, Cold Intolerance, Polydipsia, Polyuria, Other Physical Exam Narrative GENERAL: Well-nourished, well-developed patient. SKIN: Warm and dry. HEAD: Normocephalic and atraumatic. EYES: No scleral icterus. No injection or drainage. ENT: No nasal drainage noted. Mucous membranes pink. Airway patent. NECK: Supple, trachea midline. No JVD. CARDIOVASCULAR: Regular rate and rhythm without murmurs, gallops, or rubs. RESPIRATORY: Breath sounds equal bilaterally. No accessory muscle use. BREASTS: Bilateral exam showed no masses , no retractions, no nipple discharge. ABDOMEN/GI: Abdomen soft, non-tender, bowel sounds present, no rebound, no guarding Gravid to [term-] weeks size Fundal Height: [-38] GENITOURINARY: External Genitalia: intact and normal in appearance [-] Speculum exam done vagina visualize no sign of yeast or other discharge consistent with infection just a normal white hormonal discharge seen at this time cervix is large and patulous Cervix: [-1] Dilatation: [1-] Effacement: [-] Thick Station: [-3] Presentation: [vtx-] Membranes: [intact ] Uterine Contractions: [none-] FHT's: Category: [1-] Baseline: [133-] Reactive: [-yes] Variability: [-mod] Decels: [none-] EXTREMITIES: No cyanosis or edema. BACK: Nontender without obvious deformity. No CVA tenderness. NEUROLOGICAL: Awake and alert. Motor and sensory grossly within normal limits. Five out of 5 muscle strength in all muscle groups. Normal speech. MDM Interpretation(s) Patient is 21-year-old white female at 38 weeks who gives to [facility] presents planning of abdominal pain noted I'm happy she was walking also noticed a discharge that had a peculiar smell vomiting denies leakage of fluid or vaginal bleeding. heart rate tracing is reactive and she is not herlinda Plan 21-year-old white female at 38 weeks with some abdominal pain but not herlinda, heart rate tracing is reactive and no contractions noted, speculum was exam done no yeast or infective discharge noted. Plan for patient to follow-up with her OB provider this week and asked for them to recheck if the discharge is still an issue Diagnosis Diagnosis: Primary Impression: 38 weeks gestation of Additional Impressions: Abdominal pain during in third trimester Vaginal discharge during in third trimester Disposition: 01 DISCHARGE HOME Condition: Stable Dimas Macias II, MD Sep 17, 2016 23:02
== END 2016-09-17 23:56 | disposition home or self-care (01) ==
LOC: HOBED 22:10
DX: O26.893 Other specified pregnancy related conditions, third trimester (principal); R10.9 Unspecified abdominal pain; Z3A.38 38 weeks gestation of pregnancy
CPT/HCPCS: 59025

== ENCOUNTER 2016-09-23 19:27 | Emergency (ER) | payer MEDICAID ==
[2016-09-23] MEDS ORDERED: PROMETHAZINE INJ 25 MG/ML VIAL IM STA (20:34)
--- NOTE | 2016-09-23 20:50 | PD ---
HPI Chief Complaint Nausea vomiting Date Seen: Sep 23, 2016 Time Seen: 20:45 Travel History International Travel<30 Days: No Contact w/Intl Traveler<30Days: No Known Affected Area: No History of Present Illness HPI 21-year-old G 7 P1 at 38 weeks and 6 days comes in complaining of nausea for the past 24 hours with emesis and inability to keep down fluids. Denies contractions, vaginal bleeding, or rupture membranes. Patient has had good movement. This baby is up for adoption. She does have a history of substance abuse. Para: 1 : 7 Miscarriage: 4 : 1 History Past Medical History Medical History: Denies Significant Hx Obstetric History Obstetric History Spontaneous vaginal delivery 1, this baby was removed from patient's care due to a skull fracture Past Surgical History Surgical History: No Previous Surgery Family History Family History: Negative Social History Alcohol Use: No Tobacco Use: No Substance Abuse: Yes Allergies-Medications (Allergen,Severity, Reaction): Coded Allergies: No Known Allergies (Unverified , 09/22/16) Home Meds Active Scripts Without A Vit W/ Fe F (Provida Ob 20-20-1.25 mg)1 Cap Cap1 Tab PO DAILY #30 BOTTLE Ref 10 Prov:Vita Blanco [employer] 08/04/16 Review of Systems Except as stated in HPI: all other systems reviewed are Neg Physical Exam Narrative GENERAL: Well-nourished, well-developed patient. SKIN: Warm and dry. HEAD: Normocephalic and atraumatic. EYES: No scleral icterus. No injection or drainage. ENT: No nasal drainage noted. Mucous membranes pink. Airway patent. NECK: Supple, trachea midline. No JVD. CARDIOVASCULAR: Regular rate and rhythm without murmurs, gallops, or rubs. RESPIRATORY: Breath sounds equal bilaterally. No accessory muscle use. ABDOMEN/GI: Abdomen soft, non-tender, bowel sounds present, no rebound, no guarding Gravid to [-38] weeks size Fundal Height: [-] GENITOURINARY: Deferred External Genitalia: intact and normal in appearance BUS glands: [-] Cervix: [-] Dilatation: [-] Effacement: [-] Station: [-] Presentation: [-] Membranes: [intact or ruptured] Uterine Contractions: [Absent-] FHT's: Category: [-1] Baseline: [140-] Reactive: [Moderate-] Variability: Moderate Decels: Absent EXTREMITIES: No cyanosis or edema. BACK: Nontender without obvious deformity. No CVA tenderness. NEUROLOGICAL: Awake and alert. Motor and sensory grossly within normal limits. Five out of 5 muscle strength in all muscle groups. Normal speech. Data Data Vital Signs Reviewed: Yes Orders Vital Signs (Adult) .ON ADMISSION (09/23/16 20:34) ^ Labor Status (09/23/16 20:34) Diet Liquid (09/24/16 Breakfast) Ob/Psych Drug Screen, Urine (09/23/16 20:34) Promethazine Inj (Phenergan Inj) (09/23/16 20:34) MDM Plan at 38-39 weeks with mild nausea, no signs of dehydration. Able to tolerate fluids after phenergan, will send home with script Follow up with OB provider as scheduled Diagnosis Diagnosis: Primary Impression: 38 weeks gestation of Additional Impressions: Nausea & vomiting History of substance abuse Disposition: DISCHARGE HOME Scripts Promethazine (Phenergan)25 Mg [id number] Mg PO Q6H PRN (NAUSEA OR VOMITING) #10 TAB Ref 0 Prov:Elizabeth Sánchez MD 09/23/16 Elizabeth Sánchez MD Sep 23, 2016 20:50
[2016-09-23] MEDS ORDERED: PROM25TA10 PO (21:42)
[2016-10-06] MEDS ORDERED: ABDOMINAL BINDE1 MI1 (10:36)
== END 2016-09-23 22:22 | disposition home or self-care (01) ==
LOC: HOBED 19:27
DX: O21.0 Mild hyperemesis gravidarum (principal); Z3A.38 38 weeks gestation of pregnancy
CPT/HCPCS: 59025; 96372; 99284; J2550

== ENCOUNTER 2016-09-26 17:36 | Emergency (ER) | payer MEDICAID ==
[~2016-09-26 17:36] MED LIST changes: +PROM25TA10 PO
--- NOTE | 2016-09-26 19:45 | PD ---
HPI Chief Complaint Contractions Date Seen: Sep 26, 2016 Travel History International Travel<30 Days: No Contact w/Intl Traveler<30Days: No Known Affected Area: No History of Present Illness HPI Patient is 21-year-old white female at 39 weeks goes to [facility]. She presents planning of contractions. She denies bleeding or rupture the membranes, heart rate tracing is reactive and she is herlinda every 3-4 minutes Para: 1 : 7 History Obstetric History Obstetric History One vaginal delivery multiple early losses Social History Alcohol Use: No Tobacco Use: Yes Substance Abuse: No Allergies-Medications (Allergen,Severity, Reaction): Coded Allergies: No Known Allergies (Unverified , 09/26/16) Home Meds Active Scripts Promethazine (Phenergan)25 Mg [id number] Mg PO Q6H PRN (NAUSEA OR VOMITING) #10 TAB Ref 0 Prov:Elizabeth Sánchez MD 09/23/16 Without A Vit W/ Fe F (Provida Ob 20-20-1.25 mg)1 Cap Cap1 Tab PO DAILY #30 BOTTLE Ref 10 Prov:Vita Blanco 08/04/16 Review of Systems General / Constitutional: No: Fever, Weight Gain, Chills, Other Eyes: No: Diploplia, Blurred Vision, Visual changes, Pain, Photophobia HENT: No: Headaches, Vertigo, Lightheadedness Cardiovascular: No: Irregular Rhythm, Chest Pain or Discomfort, Palpitations, Tachycardia, Syncope, Varicosities, Edema, Cyanosis Respiratory: No: Cough, Short of Breath, Other Gastrointestinal: No: Nausea, Vomiting, Diarrhea Genitourinary: No: Decreased Urinary Output, Oliguria Musculoskeletal: No: Limited ROM, Weakness, Cramping, Edema, Pain Skin: No Rash, No Itching, No Dryness, No Lumps, No Change in Pigmentation, No Change in Nails, No Alopecia, No Lesions Neurologic: No: Weakness, Dizziness, Syncope, Focal Abnormalities, Coordination Problem, Headache, Slurred Speech, Seizures Psychiatric: No: Depression, Suicidal Ideations, Homicidal Ideation Endocrine: No: Heat Intolerance, Cold Intolerance, Polydipsia, Polyuria, Other Physical Exam Narrative GENERAL: Well-nourished, well-developed patient. SKIN: Warm and dry. HEAD: Normocephalic and atraumatic. EYES: No scleral icterus. No injection or drainage. ENT: No nasal drainage noted. Mucous membranes pink. Airway patent. NECK: Supple, trachea midline. No JVD. CARDIOVASCULAR: Regular rate and rhythm without murmurs, gallops, or rubs. RESPIRATORY: Breath sounds equal bilaterally. No accessory muscle use. BREASTS: Bilateral exam showed no masses , no retractions, no nipple discharge. ABDOMEN/GI: Abdomen soft, non-tender, bowel sounds present, no rebound, no guarding Gravid to [-39] weeks size Fundal Height: [-39] GENITOURINARY: External Genitalia: intact and normal in appearance BUS glands: [-] Cervix: [-] Dilatation: [3/50 and -3 posterior/vertex-] Effacement: [-50] Station: [-3] Presentation: [vtx-] Membranes: [intact ] Uterine Contractions: [-q 3 min] FHT's: Category: [1-] Baseline: [-133] Reactive: [yes-] Variability: [mod-] Decels: [none-] EXTREMITIES: No cyanosis or edema. BACK: Nontender without obvious deformity. No CVA tenderness. NEUROLOGICAL: Awake and alert. Motor and sensory grossly within normal limits. Five out of 5 muscle strength in all muscle groups. Normal speech. MDM Interpretation(s) Patient 21-year-old white female 39 weeks [facility] to [facility], she presents combining of contractions. Denies bleeding or ruptured membranes. heart rate tracing is reactive and she is herlinda every 3- 4 minutes. Cervix was checked and she was 3/ 50% -3 posterior vertex, she walked for an hour and a recheck was the same Plan Plan the patient IM shot of fentanyl for sedation and hopefully relaxation motor to home and come back when the contractions are stronger water breaks or she starts bleeding Diagnosis Diagnosis: Primary Impression: False labor after 37 weeks of gestation without delivery Disposition: 01 DISCHARGE HOME Condition: Stable Dimas Macias II, MD Sep 26, 2016 19:45
[2016-10-06] MEDS ORDERED: ABDOMINAL BINDE1 MI1 (10:36)
== END 2016-09-26 19:40 | disposition home or self-care (01) ==
LOC: HOBED 17:36
DX: O47.1 False labor at or after 37 completed weeks of gestation (principal); Z79.899 Other long term (current) drug therapy; Z72.0 Tobacco use
CPT/HCPCS: 59025; 96372; 99284; J3010

== ENCOUNTER 2016-09-28 09:56 | Emergency (ER) | payer MEDICAID ==
--- NOTE | 2016-09-28 10:41 | PD ---
HPI Chief Complaint Headache Date Seen: Sep 28, 2016 Time Seen: 10:30 (Héctor Leos MD R1) Travel History International Travel<30 Days: No Contact w/Intl Traveler<30Days: No Known Affected Area: No (Héctor Leos MD R1) History of Present Illness HPI Patient is a 21-year-old at 39 weeks and 3 days with a history of migraines who presents with headache. [facility] Patient was seen here in the OB ED on 09/26 for contractions. At that time, patient was noted to be 3 cm dilated, 50% effaced, herlinda 3-4 minutes. Patient was given a dose of IM fentanyl. Patient reports that ever since receiving this pain medication she has had intractable migraine that is worse than her usual migraines. She describes the pain as sharp and pounding, located both in the front and back of her head, unresponsive to Tylenol, exacerbated by light, sound, and lying on her side, severity 9/10. She also reports associated nausea and vomiting. She reports 8 episodes of emesis of the past 24 hours, the last 2 of which were bloody. She also complains of crampy abdominal pain about every 20 minutes as well as abdominal tenderness to palpation. She endorses spotting ever since she was checked on the . She denies any big gush of clear fluid, but reports a slow leak. She endorses movement. Para: 1 : 7 (Héctor Leos MD R1) History Past Medical History Narrative Medical Migraine Asthma Mental health disorder (Héctor Leos MD R1) Obstetric History Obstetric History Patient is a . 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 She has one living child, which was an uncomplicated, full-term, vaginal delivery. Baby had a little jaundice but was otherwise healthy. Patient has a history of a medical . (Héctor Leos MD R1) Past Surgical History Surgical History: No Previous Surgery (Héctor Leos MD R1) Family History Narrative Family History Her mother has a history of migraines. (Héctor Leos MD R1) Social History Narrative Social History She lives with her best friend, her best friend's boyfriend, and her best friend 's parents. Patient was smoking cigarettes and marijuana before she knew she got , but then stopped when she learned that she had become , about 2 months ago. Alcohol Use: No Tobacco Use: No Substance Abuse: No (Héctor Leos MD R1) Allergies-Medications (Allergen,Severity, Reaction): Coded Allergies: No Known Allergies (Unverified , 09/26/16) Home Meds Active Scripts Promethazine (Phenergan)25 Mg [id number] Mg PO Q6H PRN (NAUSEA OR VOMITING) #10 TAB Ref 0 Prov:Elizabeth Sánchez MD 09/23/16 Without A Vit W/ Fe F (Provida Ob 20-20-1.25 mg)1 Cap Cap1 Tab PO DAILY #30 BOTTLE Ref 10 Prov:Vita Blanco 08/04/16 Review of Systems General / Constitutional: No: Fever, Chills Eyes: No: Blurred Vision, Visual changes HENT: Headaches Cardiovascular: No: Chest Pain or Discomfort, Edema Respiratory: No: Short of Breath Gastrointestinal: Nausea, Vomiting Genitourinary: No: Dysuria (Héctor Leos MD R1) Physical Exam Blood pressure 121/82, heart rate 88-99, respiratory rate 18, temperature 98.0, pain 9 Narrative GENERAL: Well-nourished, well-developed patient. SKIN: Warm and dry. HEAD: Normocephalic and atraumatic. EYES: No scleral icterus. No injection or drainage. ENT: No nasal drainage noted. Mucous membranes pink and moist. Airway patent. NECK: Supple, trachea midline. No JVD. CARDIOVASCULAR: Regular rate and rhythm without murmurs, gallops, or rubs. RESPIRATORY: Breath sounds equal bilaterally. No accessory muscle use. BREASTS: Bilateral exam showed no masses , no retractions, no nipple discharge. ABDOMEN/GI: Abdomen soft, diffusely tender, bowel sounds present, no rebound, no guarding Gravid to 39 weeks size GENITOURINARY: External Genitalia: intact and normal in appearance Cervix: Posterior Dilatation: 2cm Effacement: 50% Station: -3 Presentation: vertex Membranes: intact Uterine Contractions: q1-2min FHT's: Category: Category 1 Baseline: 135 Reactive: Reactive Variability: Moderate Decels: None EXTREMITIES: No cyanosis or edema. BACK: Nontender without obvious deformity. No CVA tenderness. NEUROLOGICAL: Awake and alert. Motor and sensory grossly within normal limits. Five out of 5 muscle strength in all muscle groups. Normal speech. (Héctor Leos MD R1) Narrative Repeat SVE unchanged. (Gracy Lewis MD) Data Data Vital Signs Reviewed: Yes Orders Vital Signs (Adult) .ON ADMISSION (09/28/16 10:16) ^ Labor Status (09/28/16 10:16) ^ Non Stress Test (09/28/16 10:16) ^ Hydration (09/28/16 10:16) Promethazine Inj (Phenergan Inj) (09/28/16 10:45) Meperidine Inj (Demerol Inj) (09/28/16 10:45) (Héctor Leos MD R1) Vital Signs Reviewed: Yes (WNL) Labs UA: No Ketones, Protein, LE, NIT (Gracy Lewis MD) MDM Plan Patient is a 21-year-old at 39 weeks and 3 days with a history of migraines who presents with headache. Also, she is found to be herlinda every 1-2 minutes. 1. Rule out active labor Monitor vital signs Monitor labor status/tocometry Monitor heart tones Serial cervical checks: first cervical check was 2 cm dilated, 50% effaced, and long 2. headache, likely migraine, with associated nausea and vomiting Urine dipstick negative for ketones, patient's mucous membranes pink and moist , unlikely to be dehydrated Encourage by mouth hydration Demerol 50 mg IM 1 Phenergan 25 mg IM 1 s/d/w Dr. Lewis (Héctor Leos MD R1) Attending Attestation 21 yo @ 39 weeks. care at [facility]. History of migraine headaches. Migraine headache today with some nausea/vomiting x 1. Tolerating fluids and breakfast. Given Demerol and Phenergan and observed. Improved JIMENEZ. Tolerating fluids. FHT CAT I. Irregular UC. No cervical change on serial SVE. D/c home with labor precautions. Patient has SAMI next week. ( Gracy Lewis MD) Diagnosis Diagnosis: Primary Impression: Headache in , antepartum Additional Impressions: False labor after 37 weeks of gestation without delivery Migraine headache 39 weeks gestation of Disposition: DISCHARGE HOME Condition: Good Héctor Leos MD R1 Sep 28, 2016 10:41 Gracy Lewis MD Sep 28, 2016 12:13
[2016-09-28] MEDS ORDERED: PROMETHAZINE INJ 25 MG/ML VIAL IM ONE (10:45)
[2016-09-28] MEDS ORDERED: MEPERIDINE HCL 50 MG/ML VIAL IM ONE (10:45)
[2016-10-06] MEDS ORDERED: ABDOMINAL BINDE1 MI1 (10:36)
== END 2016-09-28 13:00 | disposition home or self-care (01) ==
LOC: HOBED 09:56
DX: O47.1 False labor at or after 37 completed weeks of gestation (principal); G43.909 Migraine, unspecified, not intractable, without status migrainosus; O21.9 Vomiting of pregnancy, unspecified; O99.333 Smoking (tobacco) complicating pregnancy, third trimester; Z3A.39 39 weeks gestation of pregnancy; Z79.899 Other long term (current) drug therapy
CPT/HCPCS: 59025; 96372; 99284; J2175; J2550

== ENCOUNTER 2016-09-30 03:08 | Emergency (ER) | payer MEDICAID ==
--- NOTE | 2016-09-30 03:48 | PD ---
HPI Chief Complaint Contractions Date Seen: Sep 30, 2016 Travel History International Travel<30 Days: No Contact w/Intl Traveler<30Days: No Known Affected Area: No History of Present Illness HPI 21-year-old white female 39 weeks with contraction pain, no bleeding or ruptured membranes. She thought she might be leaking some fluid ,amnio sure was negative area and heart rate reactive with occasional contractions seen Para: 1 : 7 History Obstetric History Obstetric History One vaginal delivery, multiple early losses Social History Alcohol Use: No Tobacco Use: No Substance Abuse: No Allergies-Medications (Allergen,Severity, Reaction): Coded Allergies: No Known Allergies (Unverified , 09/26/16) Home Meds Active Scripts Promethazine (Phenergan)25 Mg [id number] Mg PO Q6H PRN (NAUSEA OR VOMITING) #10 TAB Ref 0 Prov:Elizabeth Sánchez MD 09/23/16 Without A Vit W/ Fe F (Provida Ob 20-20-1.25 mg)1 Cap Cap1 Tab PO DAILY #30 BOTTLE Ref 10 Prov:Vita Blanco 08/04/16 Review of Systems General / Constitutional: No: Fever, Weight Gain, Chills, Other Eyes: No: Diploplia, Blurred Vision, Visual changes, Pain, Photophobia HENT: No: Headaches, Vertigo, Lightheadedness Cardiovascular: No: Irregular Rhythm, Chest Pain or Discomfort, Palpitations, Tachycardia, Syncope, Varicosities, Edema, Cyanosis Respiratory: No: Cough, Short of Breath, Other Gastrointestinal: No: Nausea, Vomiting, Diarrhea Genitourinary: No: Decreased Urinary Output, Oliguria Musculoskeletal: No: Limited ROM, Weakness, Cramping, Edema, Pain Skin: No Rash, No Itching, No Dryness, No Lumps, No Change in Pigmentation, No Change in Nails, No Alopecia, No Lesions Neurologic: No: Weakness, Dizziness, Syncope, Focal Abnormalities, Coordination Problem, Headache, Slurred Speech, Seizures Psychiatric: No: Depression, Suicidal Ideations, Homicidal Ideation Endocrine: No: Heat Intolerance, Cold Intolerance, Polydipsia, Polyuria, Other Physical Exam Narrative GENERAL: Well-nourished, well-developed patient. SKIN: Warm and dry. HEAD: Normocephalic and atraumatic. EYES: No scleral icterus. No injection or drainage. ENT: No nasal drainage noted. Mucous membranes pink. Airway patent. NECK: Supple, trachea midline. No JVD. CARDIOVASCULAR: Regular rate and rhythm without murmurs, gallops, or rubs. RESPIRATORY: Breath sounds equal bilaterally. No accessory muscle use. BREASTS: Bilateral exam showed no masses , no retractions, no nipple discharge. ABDOMEN/GI: Abdomen soft, non-tender, bowel sounds present, no rebound, no guarding Gravid to [39-] weeks size Fundal Height: [-39] GENITOURINARY: External Genitalia: intact and normal in appearance BUS glands: [-] Cervix: [-] Dilatation: [2-3-] Effacement: [-40] Station: [-3] Presentation: [-vtx] Membranes: [intact ] Uterine Contractions: [-Irregular] FHT's: Category: [-1] Baseline: [-144] Reactive: [yes-] Variability: [-mod] Decels: [0-] EXTREMITIES: No cyanosis or edema. BACK: Nontender without obvious deformity. No CVA tenderness. NEUROLOGICAL: Awake and alert. Motor and sensory grossly within normal limits. Five out of 5 muscle strength in all muscle groups. Normal speech. Data Data Labs Amnio sure negative MDM Interpretation(s) 21-year-old white female at 39 weeks [facility] to the [facility], she presents complaining of contraction pain no bleeding or ruptured membranes. She didn't think she might be leaking a little fluid but her amnio sure was negative tonight. heart rates reactive regular contractions seen, cervix is unchanged 2-3/ 40% /-3 very posterior vertex Plan Plan to discharge home to bedrest , use Tylenol orally for relief, heating pad or hot bath for comfort, return for increasing labor or other symptoms Diagnosis Diagnosis: Primary Impression: False labor after 37 weeks of gestation without delivery Disposition: DISCHARGE HOME Condition: Stable Dimas Macias II, MD Sep 30, 2016 03:48
[2016-10-06] MEDS ORDERED: ABDOMINAL BINDE1 MI1 (10:36)
== END 2016-09-30 03:58 | disposition home or self-care (01) ==
LOC: HOBED 03:08
DX: O47.1 False labor at or after 37 completed weeks of gestation (principal); Z3A.39 39 weeks gestation of pregnancy
CPT/HCPCS: 59025; 84112

== ENCOUNTER 2016-10-03 12:41 | Inpatient (IN) | payer MEDICAID ==
[~2016-10-03] VITALS: Ht 160 cm; Wt 71.7 kg
[2016-10-03] VITALS (12 sets, daily range): BP systolic 107–122; BP diastolic 68–86; PULSE 47–124; RESP 16–22; TEMP 97.9–98.6
[2016-10-03] MEDS ORDERED: LACTATED RINGER'S 1000 ML INJ 1,000 ML IV PRN (12:57)
[2016-10-03] MEDS ORDERED: LACTATED RINGER'S 1000 ML INJ 1,000 ML IV SCH (12:57)
--- NOTE | 2016-10-03 12:57 | PD ---
HPI Chief Complaint Contractions Date Seen: Oct 03, 2016 Travel History International Travel<30 Days: No Contact w/Intl Traveler<30Days: No Known Affected Area: No History of Present Illness HPI 21-year-old white female at 40 weeks presents complaining of regular severe contractions no bleeding or ruptured membranes, heart rate is reactive and she is herlinda every 2 minutes, cervix is 5 /100% /-1 bulging bag,vtx. Patient is a [facility] to [facility] for care Para: 1 : 7 History Obstetric History Obstetric History One vaginal delivery, multiple early losses Social History Alcohol Use: No Tobacco Use: No Substance Abuse: No Allergies-Medications (Allergen,Severity, Reaction): Coded Allergies: No Known Allergies (Unverified , 10/03/16) Home Meds Active Scripts Promethazine (Phenergan)25 Mg [id number] Mg PO Q6H PRN (NAUSEA OR VOMITING) #10 TAB Ref 0 Prov:Elizabeth Sánchez MD 09/23/16 Without A Vit W/ Fe F (Provida Ob 20-20-1.25 mg)1 Cap Cap1 Tab PO DAILY #30 BOTTLE Ref 10 Prov:Vita Blanco 08/04/16 Review of Systems General / Constitutional: No: Fever, Weight Gain, Chills, Other Eyes: No: Diploplia, Blurred Vision, Visual changes, Pain, Photophobia HENT: No: Headaches, Vertigo, Lightheadedness Cardiovascular: No: Irregular Rhythm, Chest Pain or Discomfort, Palpitations, Tachycardia, Syncope, Varicosities, Edema, Cyanosis Respiratory: No: Cough, Short of Breath, Other Gastrointestinal: Abdominal Pain, No: Nausea, Vomiting, Diarrhea Genitourinary: No: Decreased Urinary Output, Oliguria Musculoskeletal: No: Limited ROM, Weakness, Cramping, Edema, Pain Skin: No Rash, No Itching, No Dryness, No Lumps, No Change in Pigmentation, No Change in Nails, No Alopecia, No Lesions Neurologic: No: Weakness, Dizziness, Syncope, Focal Abnormalities, Coordination Problem, Headache, Slurred Speech, Seizures Psychiatric: No: Depression, Suicidal Ideations, Homicidal Ideation Endocrine: No: Heat Intolerance, Cold Intolerance, Polydipsia, Polyuria, Other Physical Exam Narrative GENERAL: Well-nourished, well-developed patient. SKIN: Warm and dry. HEAD: Normocephalic and atraumatic. EYES: No scleral icterus. No injection or drainage. ENT: No nasal drainage noted. Mucous membranes pink. Airway patent. NECK: Supple, trachea midline. No JVD. CARDIOVASCULAR: Regular rate and rhythm without murmurs, gallops, or rubs. RESPIRATORY: Breath sounds equal bilaterally. No accessory muscle use. BREASTS: Bilateral exam showed no masses , no retractions, no nipple discharge. ABDOMEN/GI: Abdomen soft, non-tender, bowel sounds present, no rebound, no guarding Gravid to [-40] weeks size Fundal Height: [-40] GENITOURINARY: External Genitalia: intact and normal in appearance BUS glands: [-] Cervix: [-] Dilatation: [-5] Effacement: [-100] Station: [-1] Presentation: [-] Membranes: [intact bulging bag] Uterine Contractions: q 2 minutes FHT's: Category: [-1] Baseline: [133-] Reactive: [yes-] Variability: [-mod] Decels: [-none] EXTREMITIES: No cyanosis or edema. BACK: Nontender without obvious deformity. No CVA tenderness. NEUROLOGICAL: Awake and alert. Motor and sensory grossly within normal limits. Five out of 5 muscle strength in all muscle groups. Normal speech. MDM Interpretation(s) 21-year-old white female at 40 weeks presents in active labor, cervix is 5 cm / 100 percent effaced/ -1 station vertex, heart rate tracing is reactive contractions regular [facility]. Plan Plan to admit for labor management and augmentation when necessary Diagnosis Diagnosis: Primary Impression: Uterine contractions during Condition: Stable Dimas Macias II, MD Oct 03, 2016 12:57
[2016-10-03] MEDS ORDERED: LIDOCAINE HCL 1% 50 ML VIAL I-DERMAL PRN (13:00)
[2016-10-03] MEDS ORDERED: MINERAL OIL 10 ML VIAL TOPICAL PRN (13:00)
[2016-10-03] MEDS ORDERED: CITRIC ACID-SODIUM CITRATE LIQ 30 ML UDC PO SCH (13:00)
[2016-10-03] MEDS ORDERED: SODIUM CHLORID 0.9% 500 ML INJ 500 ML IV PRN (13:00)
[2016-10-03] MEDS ORDERED: ONDANSETRON HCL 4 MG/2 ML VIAL IV PRN (13:00)
[2016-10-03] MEDS ORDERED: OXYTOCIN 30 UNITS-500ML PREMIX 500 ML IV ONE (13:00)
[2016-10-03] MEDS ORDERED: LIDOCAINE HCL 1% 50 ML VIAL INFIL PRN (13:00)
[2016-10-03] MEDS ORDERED: fentaNYL 2MCG-BUPIV 0.125% INJ 100 ML ONE (13:13)
[2016-10-03] MEDS ORDERED: SODIUM CHLOR 0.9% 1000 ML INJ 1,000 ML IV PRN (13:17)
--- NOTE | 2016-10-03 13:29 | HHI.HP ---
HPI Chief Complaint Active labor Date Seen: Oct 03, 2016 Time Seen: 13:28 Travel History International Travel<30 Days: No Contact w/Intl Traveler<30Days: No Known Affected Area: No History of Present Illness HPI Patient is a 21 y/o at 40 weeks who presents to OB triage complaining of contractions every 1-2 minutes. She denies gush of fluid and vaginal bleeding. She admits to spotting. She reports appropriate movement. Para: 1 : 7 : 5 History Past Medical History Narrative Medical Migraine Asthma Anemia Mental health disorder Obstetric History Obstetric History ; hx of medical abortions; one living child, uncomplicated Past Surgical History Surgical History: No Previous Surgery Family History Narrative Family History Mother - migraines Social History Alcohol Use: Yes (Social; admits to heavy drinking on , before she found out she was ) Tobacco Use: Yes (1 pack per week before she found out she was ) Substance Abuse: Yes (daily before she found out she was ; last use 2 and half months ago) Allergies-Medications (Allergen,Severity, Reaction): Coded Allergies: No Known Allergies (Unverified , 10/03/16) Home Meds Active Scripts Promethazine (Phenergan)25 Mg [id number] Mg PO Q6H PRN (NAUSEA OR VOMITING) #10 TAB Ref 0 Prov:Elizabeth Sánchez MD 09/23/16 Without A Vit W/ Fe F (Provida Ob 20-20-1.25 mg)1 Cap Cap1 Tab PO DAILY #30 BOTTLE Ref 10 Prov:Vita Blanco 08/04/16 Review of Systems General / Constitutional: No: Fever, Chills Eyes: No: Diploplia, Blurred Vision, Visual changes, Pain, Photophobia Cardiovascular: No: Irregular Rhythm, Chest Pain or Discomfort, Palpitations, Tachycardia, Syncope, Varicosities, Edema, Cyanosis Respiratory: No: Cough, Short of Breath, Other Gastrointestinal: No: Nausea, Vomiting Genitourinary: No: Decreased Urinary Output, Oliguria Musculoskeletal: No: Limited ROM, Weakness, Cramping, Edema, Pain Skin: No Rash, No Itching, No Dryness, No Lumps, No Change in Pigmentation, No Change in Nails, No Alopecia, No Lesions Neurologic: No: Weakness, Dizziness, Syncope, Focal Abnormalities, Coordination Problem, Headache, Slurred Speech, Seizures Endocrine: No: Heat Intolerance, Cold Intolerance, Polydipsia, Polyuria, Other Physical Exam BP 122/86 HR 98 Narrative GENERAL: Well-nourished, well-developed patient. SKIN: Warm and dry. HEAD: Normocephalic and atraumatic. EYES: No scleral icterus. No injection or drainage. ENT: No nasal drainage noted. Mucous membranes pink. Airway patent. NECK: Supple, trachea midline. No JVD. CARDIOVASCULAR: Regular rate and rhythm without murmurs, gallops, or rubs. RESPIRATORY: Breath sounds equal bilaterally. No accessory muscle use. ABDOMEN/GI: Abdomen soft, non-tender, bowel sounds present, no rebound, no guarding Gravid to 40 weeks size GENITOURINARY: External Genitalia: intact and normal in appearance Dilatation: 5-6 cm Effacement: 100 Station: -1 Presentation: Vertex Membranes: Ruptured; AROM at 13:40, clear fluid Uterine Contractions: q2min FHT's: Category: 1 Baseline: 133 Reactive: + Variability: Moderate Decels: None EXTREMITIES: No cyanosis or edema. BACK: Nontender without obvious deformity. No CVA tenderness. NEUROLOGICAL: Awake and alert. Motor and sensory grossly within normal limits. Five out of 5 muscle strength in all muscle groups. Normal speech. Data Data Vital Signs Reviewed: Yes Orders Ob (2e) Additional Admit Info (10/03/16 12:57) Admit To Inpatient (10/03/16 ) Vital Signs (Adult) .Per protocol (10/03/16 12:57) Heart (10/03/16 12:57) Amnioinfusion (10/03/16 12:57) Urinary Catheter Management .ONCE (10/03/16 12:57) Diet Npo (10/03/16 Lunch) Lactated Ringer's 1000 Ml Inj (Lr 1000 M (10/03/16 12:57) Lactated Ringer's 1000 Ml Inj (Lr 1000 M (10/03/16 12:57) Sodium Chlorid 0.9% 500 Ml Inj (Ns 500 M (10/03/16 13:00) Sodium Chlor 0.9% 1000 Ml Inj (Ns 1000 M (10/03/16 13:17) Lidocaine 1% Inj (50 Ml) (Xylocaine 1% I (10/03/16 13:00) Citric Acid-Sodium Citrate Liq (Bicitra (10/03/16 13:00) Ondansetron Inj (Zofran Inj) (10/03/16 13:00) Fentanyl Inj (Fentanyl Inj) (10/03/16 13:00) Fentanyl Inj (Fentanyl Inj) (10/03/16 13:00) Complete Blood Count With Diff (10/03/16 12:57) Hold Clot (10/03/16 12:57) Abo/Rh Blood Type (10/03/16 12:57) Urinalysis - C+S If Indicated (10/03/16 12:57) Resp Oxygen Non Rebreathe Mask (10/03/16 ) ^ Epidural / Intrathecal Infus (10/03/16 12:57) Oxytocin 30 Units-500ml Premix (Pitocin (10/03/16 13:00) Lidocaine 1% Inj (50 Ml) (Xylocaine 1% I (10/03/16 13:00) Light Mineral Oil (Muri-Lube Oil) (10/03/16 13:00) Ob/Psych Drug Screen, Urine (10/03/16 13:08) Fentanyl 2mcg-Bupiv 0.125% Inj (Fentanyl (10/03/16 13:13) Assessment/Plan Problem List: (1) Uterine contractions during Plan: Patient in active labor. * AROM at 13:40, clear fluid. * Routine labor management. * Pain management - fentanyl. Assessment and Plan Patient is a 21 y/o at 40 weeks presents to OB triage complaining of contractions every 1-2 minutes. Krystal Adan MD R1 Oct 03, 2016 13:29
[2016-10-03 13:35] LABS: AUTOMATED NEUTROPHIL # 9.6 TH/MM3 (1.8-7.7); BASOPHIL # 0.1 TH/MM3 (0-0.2); BASOPHIL % 0.4 % (0.0-2.0); EOSINOPHIL # 0.4 TH/MM3 (0-0.4); HEMO FLAGS DIFF FINAL; LYMPH % 23.6 % (9.0-44.0); LYMPHOCYTE # 3.3 TH/MM3 (1.0-4.8); MEAN CELL VOLUME 74.4 FL (80.0-100.0); MEAN CORPUSCULAR HEMOGLOBIN 25.1 PG (27.0-34.0); MEAN CORPUSCULAR HGB CONC 33.7 % (32.0-36.0); MONO % 5.2 % (0.0-8.0); NEUT % 67.8 % (16.0-70.0); PLATELET COUNT 243 TH/MM3 (150-450); RED BLOOD COUNT 4.44 MIL/MM3 (4.00-5.30); RED CELL DISTRIBUTION WIDTH 14.6 % (11.6-17.2); WHITE BLOOD COUNT 14.2 TH/MM3 (4.0-11.0)
[2016-10-03 13:45] LABS: BLOOD, URINE MOD (NEG); COMMENT (UR) CULTURE INDICATED; CULTURE IF INDICATED CULTURE INDICATED; GLUCOSE,URINE NEG (NEG); KETONE, URINE NEG (NEG); MUCUS URINE FEW /lpf (OCC); NITRITE,URINE NEG (NEG); PH, URINE 7.5 (5.0-8.5); SQUAMOUS EPITHELIAL CELL URINE 5 /hpf (0-5); URINE COLOR YELLOW (YELLW/STRAW)
[2016-10-03 13:46] LABS: BACTERIA, URINE OCC /hpf
[2016-10-03 13:58] LABS: AMPHETAMINE, URINE NEG (NEG); BARBITURATES, URINE NEG (NEG); COCAINE, URINE NEG (NEG)
--- NOTE | 2016-10-03 14:57 | PD.OB.DELI ---
Delivery Date: Oct 03, 2016 Anesthesia: Lidocaine local to perineum (vaginal laceration repair) Episiotomy: None Vaginal Delivery: Normal, Spontaneous Presentation: Vertex Nuchal Cord: None Delayed cord clamping (45 sec): Yes : Male, Single One Minute : 9 Five Minute : 9 Weight: 2950 Placenta: Spontaneous delivery, Intact, 3 vessel cord Laceration: Vaginal laceration, 2 deg Repair: Chromic interrupted, Chromic running Estimated blood loss: 300 mL Krystal Adan MD R1 Oct 03, 2016 14:57
[2016-10-03] MEDS ORDERED: OXYTOCIN 30 UNITS-500ML PREMIX 500 ML IV SCH (16:00)
[2016-10-03] MEDS ORDERED: WITCH HAZEL 50%/GLYCERIN 12.5% 40 PAD JAR TOPICAL PRN (16:00)
[2016-10-03] MEDS ORDERED: DIPHTH/TETANUS/ACEL PERTUSSIS (BOOSTER) 0.5 ML VIAL/PFS IM ONE (16:00)
[2016-10-03] MEDS ORDERED: ALUMINUM/MAGNESIUM/SIMETH 30 ML CUP PO PRN (16:00)
[2016-10-03] MEDS ORDERED: ONDANSETRON ODT 4 MG TAB PO PRN (16:00)
[2016-10-03] MEDS ORDERED: BENZOCAINE 20% TOPICAL SPRAY 60 ML CAN TOPICAL PRN (16:00)
[2016-10-03] MEDS ORDERED: ACETAMINOPHEN 325 MG TAB PO PRN (16:00)
[2016-10-03] MEDS ORDERED: ZOLPIDEM TARTRATE 5 MG TAB PO PRN (16:00)
[2016-10-03] MEDS ORDERED: SODIUM CHLORIDE 0.9% FLUSH 10 ML FLUSH IV FLUSH PRN (16:00)
[2016-10-03] MEDS ORDERED: MEASLES, MUMPS, RUBELLA VACCINE 0.5 ML VIAL SQ ONE (16:00)
[2016-10-03] MEDS ORDERED: oxyCODONE/ACETAMINOPHEN 5 MG/325 MG TAB PO PRN (16:00)
[2016-10-03] MEDS: IBUPROFEN 600 MG TAB PO PRN (19:50)
[2016-10-03] MEDS ORDERED: SODIUM CHLORIDE 0.9% FLUSH 10 ML FLUSH IV FLUSH SCH (21:00)
[2016-10-04] MEDS: IBUPROFEN 600 MG TAB PO PRN ×4 (02:53→21:52)
[2016-10-04] MEDS: oxyCODONE/ACETAMINOPHEN 5 MG/325 MG TAB PO PRN ×4 (02:53→21:52)
--- NOTE | 2016-10-04 08:17 | HHI.OB ---
Subjective Post Day: 1 Remarks Patient is a 21-year-old delivered at 40 weeks and 1 days. Patient is day 1 after . Patient's pain is well-controlled. Patient reports eating and drinking without any nausea or vomiting. Patient reports moderate bleeding like a period. Patient has passed gas but no bowel movements. Patient is walking without lower extremity pain or shortness of breath or chest pain. Patient denies any feelings of depression. Patient reports desire for contraception with IUD. Objective Vitals/I&O Vital Signs Date Time Temp Pulse Resp B/P Pulse Ox O2 Delivery O2 Flow Rate FiO2 10/03/16 20:00 97.9 84 16 122/73 10/03/16 16:30 98.6 10/03/16 16:30 80 16 107/69 10/03/16 15:12 87 16 113/68 10/03/16 15:00 118/76 10/03/16 15:00 90 18 10/03/16 14:43 97.9 18 10/03/16 14:43 84 119/78 10/03/16 14:29 88 22 117/82 10/03/16 14:10 89 10/03/16 14:05 122 10/03/16 14:05 124 10/03/16 14:00 82 10/03/16 14:00 91 10/03/16 13:10 87 10/03/16 13:04 98 122/86 10/03/16 12:55 47 Objective Remarks GENERAL: Well-nourished, well-developed patient. CARDIOVASCULAR: Regular rate and rhythm without murmurs, gallops, or rubs. RESPIRATORY: Breath sounds equal bilaterally. No accessory muscle use. ABDOMEN/GI: Abdomen soft, non-tender. Fundus: Firm, non-tender at umbilicus. GENITOURINARY: Light to moderate bleeding. EXTREMITIES: No cyanosis or edema, non-tender, without signs of DVT. Medications and IVs Current Medications Medications (Trade) Dose Ordered Sig/Peyton Route Start Time Stop Time Status Last Admin (NS Flush) 2 ml BID IV FLUSH 10/03/16 21:00 (NS Flush) 2 ml UNSCH PRN IV FLUSH 10/03/16 16:00 (Tylenol) 650 mg Q4H PRN PO 10/03/16 16:00 (Motrin) 600 mg Q6H PRN PO 10/03/16 16:00 10/04/16 02:53 (Percocet 5-325 Mg) 1 tab Q4H PRN PO 10/03/16 16:00 10/04/16 02:53 (Percocet 5-325 Mg) 2 tab Q4H PRN PO 10/03/16 16:00 (Americaine 20% Top Spr) 1 spray Q4H PRN TOPICAL 10/03/16 16:00 10/03/16 16:59 (Tucks Pads) 1 applic QID PRN TOPICAL 10/03/16 16:00 10/03/16 16:59 (Laura-Colace) 2 tab Q12H PRN PO 10/03/16 16:00 (Ambien) 5 mg HS PRN PO 10/03/16 16:00 (Mag-Al Plus Susp Liq) 15 ml Q8H PRN PO 10/03/16 16:00 (Zofran Odt) 4 mg Q6H PRN PO 10/03/16 16:00 Assessment/Plan Problem List: (1) Uterine contractions during Plan: Patient in active labor. * AROM at 13:40, clear fluid. * Routine labor management. * Pain management - fentanyl. Assessment and Plan Patient is a 21-year-old delivered at 40 weeks and 1 days. Patient is day 1 after daily. Patient was counseled to do 6 weeks of pelvic rest. Patient was counseled to follow up in 6 weeks. Patient requested follow- up and contraception. --AF VSS --Continue routine care --Motrin and Percocet when necessary for pain --Encourage OOB --Pelvic rest for 6 weeks will need follow-up appointment at that time. --Contraception: IUD planned; patient declined contraception in the interim --Anticipate discharge tomorrow d/w Dr. Macias. Héctor Leos MD R1 Oct 04, 2016 08:17
[2016-10-04 08:50] VITALS: BP 120/83; PULSE 72; RESP 16; TEMP 98
[2016-10-04] MEDS: DOCUSATE SODIUM 50 MG/SENNA 8.6 MG TAB PO PRN (15:52)
[2016-10-04 20:00] VITALS: BP 119/81; PULSE 88; RESP 18; TEMP 99.2
[2016-10-04 22:00] VITALS: RESP 18; TEMP 97.5
[2016-10-05] MEDS: DOCUSATE SODIUM 50 MG/SENNA 8.6 MG TAB PO PRN (08:25)
[2016-10-05] MEDS: IBUPROFEN 600 MG TAB PO PRN (08:25)
[2016-10-05] MEDS: oxyCODONE/ACETAMINOPHEN 5 MG/325 MG TAB PO PRN (08:25)
[2016-10-05 08:34] VITALS: BP 122/88; PULSE 78; RESP 16; TEMP 98.3
--- NOTE | 2016-10-05 08:52 | HHI.OB ---
Subjective Post Day: 2 Remarks Patient is a 21-year-old delivered at 40 weeks and 1 day. Patient is day 2 after a spontaneous vaginal delivery. Patient's pain is well- controlled. Patient reports minimal bleeding. Patient reports eating and drinking without any nausea or vomiting. Patient has passed gas and has had a bowel movement. Patient is walking without lower extremity pain or shortness of breath. Patient reports desire for placement of an IUD with her OB. Of note, patient is signing adoption papers at 2 p.m. today. She has had a chance to meet with the adoptive parents and has had some time with baby. She says while she feels sad, she understands that her baby will be in good hands. Objective Vitals/I&O Vital Signs Date Time Temp Pulse Resp B/P Pulse Ox O2 Delivery O2 Flow Rate FiO2 10/05/16 08:34 98.3 78 16 122/88 10/04/16 22:00 18 10/04/16 22:00 97.5 10/04/16 20:00 99.2 88 18 119/81 10/04/16 08:50 98.0 72 16 10/04/16 08:50 120/83 Objective Remarks GENERAL: Well-nourished, well-developed patient. CARDIOVASCULAR: Regular rate and rhythm without murmurs, gallops, or rubs. RESPIRATORY: Breath sounds equal bilaterally. No accessory muscle use. ABDOMEN/GI: Abdomen soft, non-tender. Fundus: Firm, non-tender at umbilicus. GENITOURINARY: Light to moderate bleeding. EXTREMITIES: No cyanosis or edema, non-tender, without signs of DVT. Medications and IVs Current Medications Medications (Trade) Dose Ordered Sig/Peyton Route Start Time Stop Time Status Last Admin (NS Flush) 2 ml BID IV FLUSH 10/03/16 21:00 (NS Flush) 2 ml UNSCH PRN IV FLUSH 10/03/16 16:00 (Tylenol) 650 mg Q4H PRN PO 10/03/16 16:00 (Motrin) 600 mg Q6H PRN PO 10/03/16 16:00 10/05/16 08:25 (Percocet 5-325 Mg) 1 tab Q4H PRN PO 10/03/16 16:00 10/05/16 08:25 (Percocet 5-325 Mg) 2 tab Q4H PRN PO 10/03/16 16:00 10/05/16 02:01 (Americaine 20% Top Spr) 1 spray Q4H PRN TOPICAL 10/03/16 16:00 10/03/16 16:59 (Tucks Pads) 1 applic QID PRN TOPICAL 10/03/16 16:00 10/03/16 16:59 (Laura-Colace) 2 tab Q12H PRN PO 10/03/16 16:00 10/05/16 08:25 (Ambien) 5 mg HS PRN PO 10/03/16 16:00 (Mag-Al Plus Susp Liq) 15 ml Q8H PRN PO 10/03/16 16:00 (Zofran Odt) 4 mg Q6H PRN PO 10/03/16 16:00 Assessment/Plan Problem List: (1) Vaginal delivery Assessment and Plan Patient is a 21-year-old delivered at 40 weeks and 1 days. Patient is day 2 after a spontaneous vaginal delivery. * Continue routine care. * Motrin and Percocet when necessary for pain. * Encourage OOB. * Pelvic rest for 6 weeks will need follow-up appointment at that time. * Contraception: IUD planned; patient declined contraception in the interim. * Anticipate discharge today d/w Dr. Sánchez. Krystal Adan MD R1 Oct 05, 2016 08:52
[2016-10-05] MEDS ORDERED: IBUP-232 PO (09:05)
--- NOTE | 2016-10-05 09:05 | HHI.DCPOC ---
Discharge Care Plan Diagnosis: (1) Vaginal delivery Your Health Problems Are: Vaginal delivery Report Symptoms to Your Doctor -Temperature above 100.5 degrees -Redness, of incision or excessive or foul smelling drainage -Unusual pain or calf pain -Increased vaginal bleeding -Painful or difficulty urinating -Feelings of extreme sadness or anxiety after 2 weeks Directions to Meet Your Goals Take your medications as prescribed Follow your dietary instruction Follow activity as directed Ensure plenty of rest for recovery Drink fluids for hydration Keep your appointments as scheduled Take your immunizations and boosters as scheduled If your symptoms worsen call your PCP, if no PCP go to Urgent Care Center or Emergency Room Smoking is Dangerous to Your Health. Avoid second hand smoke Call the 24-hour crisis hotline for domestic abuse at Krystal Adan MD R1 Oct 05, 2016 09:05
[2016-10-05 13:37] LABS: BATH SALTS (MDPV) UR NEG (NEG); ECSTASY (MDMA) UR NEG (NEG); HEROIN (6-ACETYLMORPHINE) UR NEG (NEG); K2 SPICE UR NEG (NEG); OBMETHADONE UR NEG (NEG); PHENCYCLIDINE URINE NEG (NEG)
[2016-10-05 13:38] LABS: GABAPENTIN UR NEG (NEG); HYDROMORPHONE U NEG (NEG); OXYCODONE (PERCODAN) NEG (NEG)
[2016-10-06] MEDS ORDERED: ABDOMINAL BINDE1 MI1 (10:36)
== END 2016-10-05 15:39 | disposition home or self-care (01) | DRG 775 ==
LOC: HOBED 12:41 → H2EB 13:01 → H1EA 16:15
PROVIDERS: ADMIT Obstetrics & Gynecology Maternal & Fetal Medicine; ATTEND Obstetrics & Gynecology Maternal & Fetal Medicine
PROC: 10E0XZZ Delivery of Products of Conception, External Approach (ICD-10-PCS; principal; 2016-10-03)
PROC: 0KQM0ZZ Repair Perineum Muscle, Open Approach (ICD-10-PCS; 2016-10-03)
PROC: 10907ZC Drainage of Amniotic Fluid, Therapeutic from Products of Conception, Via Natural or Artificial Opening (ICD-10-PCS; 2016-10-03)
DX: O70.1 Second degree perineal laceration during delivery (principal); O99.323 Drug use complicating pregnancy, third trimester; O99.331 Smoking (tobacco) complicating pregnancy, first trimester; Z37.0 Single live birth; Z3A.40 40 weeks gestation of pregnancy
CPT/HCPCS: 59025; 80307; 81001; 85025; 86703; 87086; G0481; J3010

== ENCOUNTER 2016-11-10 19:38 | Emergency (ER) | payer MEDICAID ==
[~2016-11-10] VITALS: Ht 160 cm; Wt 69.0 kg
[~2016-11-10 19:38] MED LIST changes: +ABDOMINAL BINDE1 MI1; +IBUP-232 PO; -PROM25TA10 PO
[2016-11-10 19:40] VITALS: BP 122/85; PULSE 77; RESP 16; TEMP 98.3; O2SAT 100
--- NOTE | 2016-11-10 21:34 | RADRPT ---
EXAM DATE/TIME: 11/10/2016 21:21 [facility] COMPARISON: CHEST SINGLE AP, December 20, 2015, 11:58. INDICATIONS : Right side rib pain after falling off trampoline. MEDICAL HISTORY : Asthma. SURGICAL HISTORY : None. ENCOUNTER: Initial ACUITY: 1 week PAIN SCORE: 6/10 LOCATION: Bilateral chest FINDINGS: A single view of the chest demonstrates the lungs to be symmetrically aerated without evidence of mas s, infiltrate or effusion. The cardiomediastinal contours are unremarkable. Osseous structures are intact. CONCLUSION: No acute cardiopulmonary process. Henry Guerra MD on November 10, 2016 at 21:33 Board Certified Radiologist. This report was verified electronically.
[2016-11-10] MEDS ORDERED: CYCLOBENZAPRINE HCL 10 MG TAB PO ONE (22:15)
[2016-11-10] MEDS ORDERED: CYCL1TAB29 PO (22:23)
[2016-11-10] MEDS ORDERED: IBUP-232 PO (22:23)
--- NOTE | 2016-11-10 22:23 | PD ---
HPI Chief Complaint: Abdominal Pain Time Seen by Provider: 22:00 Travel History International Travel<30 days: No Contact w/Intl Traveler<30days: No Traveled to known affect area: No History of Present Illness HPI Patient is a 21-year-old female presents emergency department for evaluation of right chest wall pain. Patient states approximately week ago she was jumping on trampoline and dove to catch a child who had fallen off the trampoline and impacted a smaller trampoline that was turned up with her legs in the air. She states that she landed right on her right chest in the mid axillary and one of these legs. States hurt initially but she didn't think she needed to come in and be seen. She states yesterday she was swimming in a pool and felt acute worsening of the pain and decided to come in and be seen. Denies any nausea vomiting diarrhea blood in the stool. She states she is currently on her periods first time she's had one since delivering a child that she gave up for adoption approximate month ago. PFSH Past Medical History Hx Anticoagulant Therapy: No Anemia: Yes Asthma: Yes Diminished Hearing: No Headaches: Yes Respiratory: Yes (ASTHMA) Tetanus Vaccination: < 5 Years Influenza Vaccination: No ?: Not : 1 Para: 1 Social History Alcohol Use: Yes Tobacco Use: Yes (1 pack per week before she found out she was ) Substance Use: Yes (POT) Allergies-Medications (Allergen,Severity, Reaction): Coded Allergies: No Known Allergies (Unverified , 11/10/16) Reported Meds & Prescriptions Reported Meds & Active Scripts Active Flexeril (Cyclobenzaprine HCl) 10 Mg Tab 10 Mg PO TID Ibuprofen 600 Mg Tab 600 Mg PO Q8H PRN Abdominal Binder/Elastic 1 Mis Mis 1 Ea .ROUTE DIRECTED Ibuprofen 600 Mg Tab 600 Mg PO Q6H PRN Provida Ob 20-20-1.25 mg ( Without A Vit W/ Fe F) 1 Cap Cap 1 Tab PO DAILY Review of Systems Except as stated in HPI: all other systems reviewed are Neg Physical Exam Narrative GENERAL: Well-developed well-nourished no obvious distress SKIN: Focused skin assessment warm/dry. Patient has a perfectly round abrasion/ contusion in the right axillary line approximately the level of T6. Probably tender to palpation, no crepitance felt. HEAD: Atraumatic. Normocephalic. EYES: Pupils equal and round. No scleral icterus. No injection or drainage. No conjunctival pallor ENT: No nasal bleeding or discharge. Mucous membranes pink and moist. NECK: Trachea midline. No JVD. CARDIOVASCULAR: Regular rate and rhythm. No murmur appreciated. No crepitance. RESPIRATORY: No accessory muscle use. Clear to auscultation. Breath sounds equal bilaterally. GASTROINTESTINAL: Abdomen soft, non-tender, nondistended. Hepatic and splenic margins not palpable. No rebound no percussive tenderness, liver nontender, spleen nontender. MUSCULOSKELETAL: No obvious deformities. No clubbing. No cyanosis. No edema. NEUROLOGICAL: Awake and alert. No obvious cranial nerve deficits. Motor grossly within normal limits. Normal speech. PSYCHIATRIC: Appropriate mood and affect; insight and judgment normal. Data Data Last Documented VS Vital Signs Date Time Temp Pulse Resp B/P (MAP) Pulse Ox O2 Delivery O2 Flow Rate FiO2 11/10/16 22:28 11/10/16 19:40 98.3 77 16 100 Room Air Orders Orders Chest, Single Ap (11/10/16 ) Cyclobenzaprine (Flexeril) (11/10/16 22:15) MDM Medical Decision Making Medical Screen Exam Complete: Yes Emergency Medical Condition: Yes Differential Diagnosis Chest wall contusion, rib fracture, rib contusion, pneumothorax and less likely , acute abdomen highly unlikely, liver laceration possible but very unlikely. Narrative Course Patient roomed emergency department, I believe that her wound is superior to the diaphragm and is very unlikely that she had any significant injury to the abdomen organs. Chest x-ray was obtained and shows no cardiopulmonary abnormality. No rib fracture that I can discern. The patient appears comfortable and in no distress. Think that the risks of CT imaging outweigh the benefits at this time and I do not believe there is any indication further workup as she appears stable and has been for a week since initial injury. Discussed symptomatic management returned ED criteria Diagnosis Primary Impression: Chest wall pain Med/Other Pt SpecificInfo: Prescription(s) given Scripts Cyclobenzaprine (Flexeril) 10 Mg Tab 10 MG PO TID for Muscle Spasm, #20 TAB 0 Refills Prov: Ander Allred MD 11/10/16 Ibuprofen (Ibuprofen) 600 Mg Tab 600 MG PO Q8H Y for PAIN, #20 TAB 0 Refills Prov: Ander Allred MD 11/10/16 Disposition: 01 DISCHARGE HOME Condition: Stable Ander Allred MD Nov 10, 2016 22:23
== END 2016-11-10 22:31 | disposition home or self-care (01) ==
LOC: NEPD 19:38
DX: R07.89 Other chest pain (principal); Z72.0 Tobacco use; Z86.2 Personal history of diseases of the blood and blood-forming organs and certain disorders involving the immune mechanism; Z87.09 Personal history of other diseases of the respiratory system; W22.09XA Striking against other stationary object, initial encounter; Y93.44 Activity, trampolining
CPT/HCPCS: 71010; 99283

== ENCOUNTER 2017-07-05 13:06 | Emergency (ER) | payer SELFPAY ==
[~2017-07-05] VITALS: Ht 160 cm; Wt 80.0 kg
[~2017-07-05 13:06] MED LIST changes: +CYCL10TA PO
[2017-07-05 13:09] VITALS: BP 139/77; PULSE 82; RESP 18; TEMP 97.6; O2SAT 99
--- NOTE | 2017-07-05 13:53 | PD ---
HPI Chief Complaint: Related Problem Time Seen by Provider: 13:52 Travel History International Travel<30 days: No Contact w/Intl Traveler<30days: No Traveled to known affect area: No History of Present Illness HPI 21-year-old female presents emergency department with lower abdominal cramping and spotting for the past 2-1/2 days. Patient states her last menstrual period was sometime in the beginning of May. Patient has history of 6 pregnancies and 3 spontaneous miscarriages. She has 2 living children. She states bleeding is more pronounced today. Pain is 4 out of 10 currently. She denies fever, chills, vaginal discharge, urinary symptoms, or flank pain. She cannot recall her blood type. She has no known drug allergies. PFSH Past Medical History Hx Anticoagulant Therapy: No Anemia: Yes Asthma: Yes Diminished Hearing: No Headaches: Yes Respiratory: Yes (ASTHMA) Immunizations Current: Yes Tetanus Vaccination: < 5 Years Influenza Vaccination: No ?: : 6 Para: 2 Miscarriage: 3 : 1 Past Surgical History Surgical History: No Previous Surgery Social History Alcohol Use: Yes Tobacco Use: Yes (1 pack per week before she found out she was ) Substance Use: Yes (POT) Allergies-Medications (Allergen,Severity, Reaction): Coded Allergies: No Known Allergies (Unverified Adverse Reaction, Unknown, 07/05/17) Reported Meds & Prescriptions Reported Meds & Active Scripts Active No Active Prescriptions or Reported Medications Review of Systems Except as stated in HPI: all other systems reviewed are Neg General / Constitutional: No: Fever Eyes: No: Visual changes HENT: No: Headaches Cardiovascular: No: Chest Pain or Discomfort Respiratory: No: Shortness of Breath Gastrointestinal: No: Abdominal Pain Genitourinary: Positive: Pelvic Pain, Vaginal Bleeding, No: Urgency, Frequency , Dysuria Musculoskeletal: No: Pain Skin: No Rash Neurologic: No: Weakness Psychiatric: No: Depression Endocrine: No: Polydipsia Hematologic/Lymphatic: No: Easy Bruising Physical Exam Narrative GENERAL: Patient appears in no obvious distress per SKIN: Warm and dry. Normal color. Normal turgor. No rash. HEAD: Atraumatic. Normocephalic. EYES: Pupils equal and round. No scleral icterus. No injection or drainage. ENT: No nasal bleeding or discharge. Mucous membranes pink and moist. Pharynx is clear. Airways patent NECK: Trachea midline. Supple nontender CARDIOVASCULAR: Regular rate and rhythm. RESPIRATORY: No accessory muscle use. Clear to auscultation. Breath sounds equal bilaterally. GASTROINTESTINAL: Abdomen soft, non-tender, nondistended. Hepatic and splenic margins not palpable. No CVA tenderness. MUSCULOSKELETAL: Extremities without clubbing, cyanosis, or edema. No obvious deformities. NEUROLOGICAL: Awake and alert. No obvious cranial nerve deficits. Motor grossly within normal limits. Five out of 5 muscle strength in the arms and legs. Normal speech. PSYCHIATRIC: Appropriate mood and affect; insight and judgment normal. Data Data Last Documented VS Vital Signs Date Time Temp Pulse Resp B/P (MAP) Pulse Ox O2 Delivery O2 Flow Rate FiO2 07/05/17 15:09 79 16 106/74 (85) 99 07/05/17 13:09 97.6 Orders Orders Beta Hcg (Quant/Titer) (07/05/17 13:53) Complete Blood Count With Diff (07/05/17 13:53) Comprehensive Metabolic Panel (07/05/17 13:53) Urinalysis - C+S If Indicated (07/05/17 13:53) Ed Urine Pregnancytest Poc (07/05/17 13:53) Labs Laboratory Tests Test 07/05/17 15:00 07/05/17 15:15 [facility] Medical Decision Making Medical Screen Exam Complete: Yes Emergency Medical Condition: Yes Differential Diagnosis Lower abdominal pain. Early . Threatened . Vaginal bleeding Narrative Course Patient is medically stable at time of exam Labs ordered including CBC, CMP, serum hCG, and BB K. Urinalysis and urine is ordered Pelvic ultrasound is ordered. Urine test is negative. Labs and pelvic ultrasound are canceled. Patient is discharged with follow-up with the [facility] center as needed. Diagnosis Primary Impression: Vaginal bleeding Additional Impression: test negative Referrals: [facility] Patient Instructions: General Instructions, Ibuprofen (By mouth) Departure Forms: Work Release Enter return to work date: July 06, 2017 Additional Instructions: Labs ordered including CBC, CMP, serum hCG, and BB K. Urinalysis and urine is ordered Pelvic ultrasound is ordered. Urine test is negative. Labs and pelvic ultrasound are canceled. Patient is discharged with follow-up with the women's center as needed. Med/Other Pt SpecificInfo: Prescription(s) given Scripts No Active Prescriptions or Reported Meds Disposition: 01 DISCHARGE HOME Condition: Elvin Roberts July 05, 2017 13:53
[2017-07-05 15:09] VITALS: BP 106/74; PULSE 79; RESP 16; O2SAT 99
[2017-07-05] MEDS ORDERED: IBUP-232 PO (15:32)
[2017-07-05 15:40] LABS: AUTOMATED NEUTROPHIL # 4.1 TH/MM3 (1.8-7.7); BASOPHIL % 0.3 % (0.0-2.0); EOSINOPHIL # 0.4 TH/MM3 (0-0.4); EOSINOPHIL % 5.1 % (0.0-4.0); HEMATOCRIT 35.3 % (35.0-46.0); HEMOGLOBIN 11.6 GM/DL (11.6-15.3); LYMPHOCYTE # 2.2 TH/MM3 (1.0-4.8); MEAN CELL VOLUME 75.9 FL (80.0-100.0); MEAN CORPUSCULAR HEMOGLOBIN 24.9 PG (27.0-34.0); MEAN CORPUSCULAR HGB CONC 32.8 % (32.0-36.0); MEAN PLATELET VOLUME 8.7 FL (7.0-11.0); MONO % 6.7 % (0.0-8.0); MONOCYTE # 0.5 TH/MM3 (0-0.9); NEUT % 56.9 % (16.0-70.0); PLATELET COUNT 301 TH/MM3 (150-450); RED BLOOD COUNT 4.65 MIL/MM3 (4.00-5.30); RED CELL DISTRIBUTION WIDTH 15.1 % (11.6-17.2); WHITE BLOOD COUNT 7.2 TH/MM3 (4.0-11.0)
[2017-07-05 15:49] LABS: BACTERIA, URINE FEW /hpf; BILIRUBIN, URINE NEG (NEG); BLOOD, URINE LARGE (NEG); GLUCOSE,URINE NEG (NEG); KETONE, URINE NEG (NEG); NITRITE,URINE NEG (NEG); PH, URINE 5.5 (5.0-8.5); SQUAMOUS EPITHELIAL CELL URINE 26 /hpf (0-5); URINE LEUKOCYTE ESTERASE SMALL (NEG)
[2017-07-05 15:50] LABS: URINE COLOR LIGHT-RED (YELLW/STRAW)
[2017-07-05 15:54] LABS: ALBUMIN 3.6 GM/DL (3.4-5.0); AST (GOT) 23 U/L (15-37); BICARBONATE 23.9 MEQ/L (21.0-32.0); BLOOD UREA NITROGEN 11 MG/DL (7-18); CALCIUM 8.5 MG/DL (8.5-10.1); CHLORIDE 105 MEQ/L (98-107); CREATININE 0.69 MG/DL (0.50-1.00); GLOMERULAR FILTRATION RATE 107 ML/MIN (>89); GLUCOSE,RANDOM 78 MG/DL (74-106); SODIUM (NA) 137 MEQ/L (136-145)
[2017-07-05 15:55] LABS: ALT (GPT) 19 U/L (10-53)
[2017-07-05 15:59] LABS: ALKALINE PHOSPHATASE 124 U/L (45-117); TOTAL BILIRUBIN ADULT 0.3 MG/DL (0.2-1.0); TOTAL PROTEIN 7.6 GM/DL (6.4-8.2)
== END 2017-07-05 16:13 | disposition home or self-care (01) ==
LOC: NEPD 13:06
DX: N93.9 Abnormal uterine and vaginal bleeding, unspecified (principal); Z32.02 Encounter for pregnancy test, result negative
CPT/HCPCS: 80053; 81001; 84702; 84703; 85025; 87086; 99283